=== PATIENT | male | born 1955 | race Caucasian/White ===

== ENCOUNTER 2016-10-29 16:01 | Inpatient (IN) | payer OTHER ==
[~2016-10-29] VITALS: Ht 172.7 cm; Wt 72.8 kg
--- NOTE | ~2016-10-29 | PR ---
[place], [place] PROGRESS NOTE NAME: JOSE L VICENTE UNIT #: [id number] ROOM: 317 DOCTOR: DENI WOOD MD BIRTHDATE: [birth year] DOS: 11/01/2016 CHIEF COMPLAINT: "Nobody is helping me, my renal case manager has done nothing for me, people keep letting me down." SUMMARY OF THE VISIT: The patient was interviewed as he rested in bed. He offered a plethora of complaints this morning, being very angry and irritable towards those people who he feels should be helping him more. He feels that his renal case manager has done nothing and that many people have promised that they would help him with his situation, but they have never delivered. He was very negative and nihilistic and offered one complaint after another including continued chronic pain and poor sleep. MENTAL STATUS: He remains alert and oriented with some time gaps. Mood does seem to be still depressed. Affect is still blunted with a constricted range. There was no hypomania or zak. There were no overt auditory or visual hallucinations. No delusions, no paranoia. Short, intermediate, and long-term memory were relatively fully intact. PLAN: I will go ahead and increase his Cymbalta from 60 mg at bedtime to 90 mg at bedtime to combat depression, anxiety and reduce pain. His valproic acid level was therapeutic at 88.9, so I will maintain his current dose of Depakote. Continue to engage in individual and lamb milieu activities with the plan to return home when psychiatrically stable. DENI WOOD MD CM:PNTRANS [id number] DENI WOOD MD 11/01/16 1032 interface
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
--- NOTE | ~2016-10-29 | PR ---
[place], [place] PROGRESS NOTE [id number] UN[facility] #: [id number] ROOM: 317 DOCTOR: DENI WOOD MD BIRTHDATE: [birth year] DOS: 10/31/2016 CHIEF COMPLAINT: "I think I feel better with the Cymbalta. I like it better than the Prozac." SUMMARY OF THE VISIT: The patient was interviewed in the dining area where he was sitting with a female peer. He engaged readily in conversation with me stating that he is feeling somewhat better since I may to switch off the Prozac on to the Cymbalta. He reports his sleep is better. He is feeling much more positive. He is also noting somewhat less pain and discomfort. He convincingly denies any medication side effects. MENTAL STATUS: He is alert and oriented. Mood does seem to be trending towards euthymia and affect is much more appropriate. There is no symptom suggestive of hypomania or zak. There are no overt auditory or visual hallucinations. No delusions are present. No paranoia is present. Short, intermediate, and alf memory are grossly intact. PLAN: I will go ahead and start him on multivitamin with minerals as he is borderline anemic. I will check a valproic acid level, a Keppra level, and a gabapentin level in the a.m. to ensure that they are therapeutic. We will engage him in individual and lamb milieu activity, returning home when psychiatrically stable. DENI WOOD MD CM:PNTRANS [phone] DENI WOOD MD 10/31/16 1047 interface
[~2016-10-29 16:01] MED LIST: ALAVERT10 M1 PO; APAP PO; ASPI-COR81 M1 PO; CYCLOBENZAPRINE10 MG PO; CYMBALTA30 MG PO; CYMBALTA60 MG PO; DEPAKOTE DR500 MG PO; DEPAKOTE500 M1 PO; DIVALPROEX SOD500 MG PO; GABAPENTIN400 MG PO; IMITREX100 MG PO; INVEGA9 MG PO; KEPPRA500 MG PO; LACTULOSE20 GM/30 M PO; MORPHINE SULFAT30 M8 PO; MS CONTIN30 MG PO; NEURONTIN300 MG PO; OXYCODONE HCL10 M1 PO; OXYCODONE PO; OXYMORPHONE HCL15 MG PO; PREDNISONE10 MG PO; TRIXAICIN HP0.075% T; TYLENOL W/CODEI1 TA2 PO; VITAMIN D50000 I3 PO; ZETIA10 MG PO; [UNRECOGNIZED DRUG - OTHER] PO
[2016-10-29] MEDS ORDERED: NEURONTIN300 MG PO (16:08)
[2016-10-29] MEDS ORDERED: PROZAC10 MG PO (16:11)
[2016-10-29] MEDS ORDERED: MOVANTIK25 MG PO (16:12)
[2016-10-29] MEDS ORDERED: LOW DOSE ASPIRI81 MG PO (16:12)
[2016-10-29] MEDS ORDERED: OXYCODONE HCL10 M1 PO (16:12)
[2016-10-29] MEDS ORDERED: GARLIC1000 M1 PO (16:14)
[2016-10-29] MEDS ORDERED: [UNRECOGNIZED DRUG - CODE] PO (16:15)
[2016-10-29 16:17] VITALS: BP 108/62
[2016-10-29 16:41] LABS: BASO % 0.8 % (0.0-1.0); EOS # 0.2 10*3/uL (0.0-0.4); EOS % 4.4 % (1.0-4.0); HEMATOCRIT 40.2 % (42.0-52.0); HEMOGLOBIN 13.4 g/dl (14.0-18.0); LYMPH # 1.7 10*3/uL (1.3-4.4); LYMPH % 32.8 % (27.0-41.0); MEAN CELL VOLUME 96.2 fl (80.0-94.0); MEAN CORPUSCULAR HGB 32.1 pg (27.0-31.0); MEAN CORPUSCULAR HGB CONC 33.3 g/dl (33.0-37.0); MEAN PLATELET VOLUME 9.3 fl (9.6-12.3); MONO # 0.7 10*3/uL (0.1-1.0); MONO % 13.4 % (3.0-9.0); NEUT # 2.5 10*3/uL (2.3-7.9); NEUT % 48.4 % (47.0-73.0); PLATELET COUNT AUTOMATED 171 10*3/uL (130-400); RED BLOOD COUNT 4.18 10*6/uL (4.50-5.90); RED CELL DISTRI WIDTH 13.2 % (0-14.5); WHITE BLOOD COUNT 5.2 10*3/uL (4.8-10.8)
[2016-10-29 16:53] LABS: BUN 24 mg/dl (7-24); CARBON DIOXIDE 29 mmol/L (21-32); CHLORIDE 104 mmol/L (98-107); EST GLOM FILT AFRICAN AMERICAN > 60 ml/min; GLUCOSE 88 mg/dL (65-99); POTASSIUM 4.3 mmol/L (3.5-5.1); SODIUM 142 mmol/L (136-145)
[2016-10-29 18:20] LABS: BILIRUBIN NEGATIVE (NEGATIVE); BLOOD 2+ (NEGATIVE); CLARITY CLEAR (CLEAR); COLOR YELLOW (YELLOW); GLUCOSE NEGATIVE (NEGATIVE); KETONE NEGATIVE (NEGATIVE); LEUKO ESTERASE NEGATIVE (NEGATIVE); NITRITE NEGATIVE (NEGATIVE); PROTEIN NEGATIVE (NEGATIVE)
[2016-10-29 18:29] LABS: URINE AMPHETAMINES < 1000 (1000ng/ml); URINE BARBITURATES < 200 (200ng/ml); URINE COCAINE < 300 (300ng/ml)
[2016-10-29 18:48] LABS: BACTERIA TRACE; RBC 16-20 rbc/hpf (0-2)
[2016-10-29 18:49] LABS: EPITHELIAL CELLS 0-2; URINE REFLEX COMMENT YES (NO); WBC 0-2 wbc/hpf (0-5)
[2016-10-29 21:00] VITALS: BP 120/82
[2016-10-29 21:04] VITALS: BP 120/82
[2016-10-30 08:11] VITALS: BP 106/72
[2016-10-30 20:00] VITALS: BP 106/68
[2016-10-31 07:50] VITALS: BP 105/69
[2016-10-31 19:54] VITALS: BP 105/65
[2016-11-01 07:50] VITALS: BP 105/62
[2016-11-01 20:17] VITALS: BP 99/62
[2016-11-02 07:06] LABS: NEURONTIN (GABAPENTIN) 6.6 ug/mL (4.0-16.0)
[2016-11-02 08:13] VITALS: BP 111/72
[2016-11-02] MEDS ORDERED: DULOXETINE HCL30 MG PO (08:31)
[2016-11-02] MEDS ORDERED: DIVALPROEX SOD500 MG PO (08:31)
== END 2016-11-02 12:40 | disposition home or self-care (01) | DRG 885 ==
LOC: ED 16:01 → EDHOLD 19:15 → 3N 19:15
PROVIDERS: Emergency Medicine; Psychiatry & Neurology Psychiatry
DX: F33.2 Major depressive disorder, recurrent severe without psychotic features (principal); R45.851 Suicidal ideations; G62.9 Polyneuropathy, unspecified; G40.909 Epilepsy, unspecified, not intractable, without status epilepticus; F41.9 Anxiety disorder, unspecified; D53.9 Nutritional anemia, unspecified; R31.9 Hematuria, unspecified; M54.42 Lumbago with sciatica, left side; M54.41 Lumbago with sciatica, right side; G89.29 Other chronic pain; E78.5 Hyperlipidemia, unspecified; F17.210 Nicotine dependence, cigarettes, uncomplicated; I73.9 Peripheral vascular disease, unspecified; K59.00 Constipation, unspecified; T40.2X5A Adverse effect of other opioids, initial encounter; Y92.89 Other specified places as the place of occurrence of the external cause; Z98.49 Cataract extraction status, unspecified eye; Z88.0 Allergy status to penicillin; Z71.6 Tobacco abuse counseling; Z88.5 Allergy status to narcotic agent; Z83.3 Family history of diabetes mellitus

== ENCOUNTER 2017-02-17 06:21 | Inpatient (IN) | payer OTHER ==
[~2017-02-17] VITALS: Ht 177.8 cm; Wt 69.1 kg
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
[~2017-02-17 06:21] MED LIST changes: +DULOXETINE HCL30 MG PO; +GARLIC1000 M1 PO; +LOW DOSE ASPIRI81 MG PO; +MOVANTIK25 MG PO; +PROZAC10 MG PO; +[UNRECOGNIZED DRUG - CODE] PO
[2017-02-17 06:37] VITALS: BP 107/71
[2017-02-17 06:51] LABS: BASO % 0.4 % (0.0-1.0); EOS # 0.2 10*3/uL (0.0-0.4); HEMATOCRIT 38.3 % (42.0-52.0); HEMOGLOBIN 13.2 g/dl (14.0-18.0); LYMPH # 1.2 10*3/uL (1.3-4.4); LYMPH % 13.9 % (27.0-41.0); MEAN CELL VOLUME 93.6 fl (80.0-94.0); MEAN CORPUSCULAR HGB 32.3 pg (27.0-31.0); MEAN CORPUSCULAR HGB CONC 34.5 g/dl (33.0-37.0); MEAN PLATELET VOLUME 10.4 fl (9.6-12.3); MONO # 0.6 10*3/uL (0.1-1.0); MONO % 7.2 % (3.0-9.0); NEUT # 6.8 10*3/uL (2.3-7.9); NEUT % 76.3 % (47.0-73.0); PLATELET COUNT AUTOMATED 135 10*3/uL (130-400); RED BLOOD COUNT 4.09 10*6/uL (4.50-5.90); WHITE BLOOD COUNT 8.9 10*3/uL (4.8-10.8)
[2017-02-17 07:08] LABS: ACETAMINOPHEN (TYLENOL) < 2.0 ug/ml (10-30); ALBUMIN 3.6 gm/dl (3.1-4.5); ALKALINE PHOSPHATASE 50 U/L (45-117); BUN 47 mg/dl (7-24); CHLORIDE 99 mmol/L (98-107); CREATININE 1.23 mg/dL (0.70-1.30); ETHYL ALCOHOL < 3.0 mg/dl (<3); POTASSIUM 4.4 mmol/L (3.5-5.1); SGOT/AST 944 IU/L (3-35); SGPT/ALT 228 U/L (12-78); SODIUM 134 mmol/L (136-145); TOTAL PROTEIN 6.4 gm/dL (6.4-8.2); VALPROIC ACID (DEPAKENE) 38.9 ug/ml (50-100)
[2017-02-17 08:00] LABS: BILIRUBIN 1+ (NEGATIVE); BLOOD 3+ (NEGATIVE); CLARITY SL CLOUDY (CLEAR); COLOR YELLOW (YELLOW); GLUCOSE NEGATIVE (NEGATIVE); KETONE 1+ (NEGATIVE); LEUKO ESTERASE NEGATIVE (NEGATIVE); NITRITE NEGATIVE (NEGATIVE); PH 5.5 (5.0-9.0)
[2017-02-17 08:11] LABS: URINE AMPHETAMINES < 1000 (1000ng/ml); URINE BARBITURATES < 200 (200ng/ml); URINE BENZODIAZEPINES < 200 (200ng/ml); URINE CANNABINOIDS (THC) < 50 (50ng/ml); URINE COCAINE < 300 (300ng/ml); URINE METHADONE < 300 (300ng/ml); URINE OPIATES > 300 (300ng/ml)
[2017-02-17 08:12] LABS: BACTERIA 2+; MUCOUS 1+; URINE PHENCYCLIDINE < 25 (25ng/ml)
[2017-02-17 08:13] LABS: EPITHELIAL CELLS 0-2
[2017-02-17 08:13] LABS: ACT PARTIAL THROMBO TIME 23.5 SECONDS (20.8-31.5)
[2017-02-17 08:39] VITALS: BP 117/70
--- NOTE | 2017-02-17 09:10 | NUR ---
Time: 909 A 61 year old MALE admitted to 5E under services of MANDEEP HICKEY DO. Pt. arrived via stretcher from ER. Chief complaint: FALL. VARUN VIVAS
[2017-02-17 09:12] VITALS: BP 126/72
--- NOTE | 2017-02-17 11:21 | NUR ---
DR WOOD NOTIFIED OF CONSULT.
[2017-02-17] MEDS ORDERED: CYMBALTA60 MG PO (11:51)
--- NOTE | 2017-02-17 11:55 | NUR ---
MEDS VERIFIED WITH [facility]. BOBY SMITH NOTIFIED.
--- NOTE | 2017-02-17 14:48 | NUR ---
PHYSICAL THERAPY PAtient unable to participate in PT this date. Confused and requesting no PT. Will attempt at a later date. Thank you for this referral. Valentina Enamorado,PT
--- NOTE | 2017-02-17 14:50 | NUR ---
Occupational Therapy evaluation attempted this date. Patient declined services this date. He was confused in thought and had a difficulty time focusing on questions asked. OTR will recheck at a later date. Thank you for this referral. Na Lucas OTR/L
[2017-02-17 16:00] VITALS: BP 81/59
--- NOTE | 2017-02-17 16:30 | NUR ---
SPOT BILLING CLERK STATES PT DOES HAVE HEAT. PROPANE WAS DELIVERED TODAY.
--- NOTE | 2017-02-17 22:30 | NUR ---
PATIENT CONFUSED . DOES NOT REORIENT EASILY. WANTING TO LEAVE. PATIENT RETURNED TO BED.
--- NOTE | 2017-02-17 22:48 | NUR ---
PATIENT MEDICATED WITH RESTORIL AND OXY IR PER PRN ORDER AND PATIENT REQUEST FOR INABILITY TO SLEEP AND PAIN. SEE EMAR. REINFORCED USE OF CALL LIGHT.
--- NOTE | 2017-02-18 | NUR ---
PATIENT CONFUSED COMBATIVE REFUSING TO HIS VITAL SIGNS TAKEN.
--- NOTE | 2017-02-18 00:15 | NUR ---
PATIENT AGGITATED , COMBATIVE WITH STAFF. BECAME MORE COMBATIVE WITH NURSING INTERVENTIONS.
--- NOTE | 2017-02-18 00:20 | NUR ---
CAROLINE ROMEO CALLED. DR SEO AND DR QUIROZ CAME TO FLOOR. ATTEMPTS TO REORIENT UNSUCCESSFUL.
--- NOTE | 2017-02-18 00:27 | NUR ---
FRIEND KIM CALLED. STATED SHE WAS IN [place] AND WAS UNABLE TO CONE SIT WITH PATIENT.
--- NOTE | 2017-02-18 00:55 | NUR ---
CALL TO DR. WOOD. NO ANSWER . WENT TO [employer] MACHINE. MESSAGE LEFT TO CALL .
--- NOTE | 2017-02-18 01:01 | NUR ---
PATIENT MEDICATED WITH 5 MG IM GEODONE PER ORDER.
--- NOTE | 2017-02-18 02:00 | NUR ---
PATIENT APPEARS TO BE MORE CALM . ACTUARY MANAGER SITTING WITH PATIENT AT PRESENT.
--- NOTE | 2017-02-18 02:53 | NUR ---
PATIENT UP AND RESTLESS. PATIENT MEDICATED WITH HALDOL 2.5MG IV PER ONE TIME ORDER.
--- NOTE | 2017-02-18 03:13 | NUR ---
CAROLINE ROMEO CALLED AGAIN. PATIENT RESTLESS COMBATIVE . BECOMING MORE AGGITATED AND COMBATIVE.
--- NOTE | 2017-02-18 03:25 | NUR ---
ATIVAN 1 MG IM GIVEN FOR AGGITATION.
--- NOTE | 2017-02-18 03:50 | NUR ---
DR. QUIROZ AND DR SEO CALLED . PATIENT AGGITATED REFUSING TO RETURN TO BED. KICKING AT STAFF AND YELLING. DR SEO STATED SHE WOULD PUT MEDS IN AND COME TO FLOOR.
--- NOTE | 2017-02-18 03:59 | NUR ---
PATIENT MEDICATED WITH 10 MG IM GEODON PER ONE TIME ORDER FOR AGGITATION AND COMBATIVE BEHAVIOR.
--- NOTE | 2017-02-18 05:15 | NUR ---
PATIENT APPEARS TO BE RESTING EASILY. MEDICATION EFFECTIVE.
[2017-02-18 06:36] LABS: BASO % 0.4 % (0.0-1.0); EOS # 0.2 10*3/uL (0.0-0.4); EOS % 2.9 % (1.0-4.0); HEMATOCRIT 39.8 % (42.0-52.0); HEMOGLOBIN 13.4 g/dl (14.0-18.0); LYMPH # 1.3 10*3/uL (1.3-4.4); LYMPH % 19.4 % (27.0-41.0); MEAN CELL VOLUME 96.1 fl (80.0-94.0); MEAN CORPUSCULAR HGB 32.4 pg (27.0-31.0); MEAN CORPUSCULAR HGB CONC 33.7 g/dl (33.0-37.0); MEAN PLATELET VOLUME 10.1 fl (9.6-12.3); MONO # 0.7 10*3/uL (0.1-1.0); MONO % 9.6 % (3.0-9.0); NEUT # 4.6 10*3/uL (2.3-7.9); NEUT % 67.1 % (47.0-73.0); PLATELET COUNT AUTOMATED 149 10*3/uL (130-400); RED BLOOD COUNT 4.14 10*6/uL (4.50-5.90); RED CELL DISTRI WIDTH 13.3 % (0-14.5); WHITE BLOOD COUNT 6.9 10*3/uL (4.8-10.8)
[2017-02-18 06:47] LABS: ALBUMIN 3.1 gm/dl (3.1-4.5); CHLORIDE 104 mmol/L (98-107); CHOLESTEROL 118 mg/dL (<200); PHOSPHOROUS 3.4 mg/dL (2.5-4.9); POTASSIUM 3.9 mmol/L (3.5-5.1); SGOT/AST 466 IU/L (3-35); SGPT/ALT 167 U/L (12-78); SODIUM 140 mmol/L (136-145); TOTAL PROTEIN 6.5 gm/dL (6.4-8.2); TRIGLYCERIDES 87 mg/dl (<150); VLDL CHOLESTEROL 17 mg/dL (6-40)
[2017-02-18 06:54] LABS: ALKALINE PHOSPHATASE 53 U/L (45-117); FREE T4 1.41 ng/dl (0.76-1.46); HDL CHOLESTEROL 46 mg/dl (40-60); LDL CHOLESTEROL 55 mg/dL (9-159)
[2017-02-18 06:58] LABS: BUN 27 mg/dl (7-24)
[2017-02-18 07:04] LABS: HEPATITIS B SURFACE AG Negative (Negative)
[2017-02-18 07:47] LABS: HEPATITIS C VIRUS ANTIBODY >11.0 s/co (0.0-0.9)
[2017-02-18 07:50] LABS: VITAMIN D, 25-HYDROXY 13.3 ng/mL (30-100)
[2017-02-18 08:00] VITALS: BP 97/67
--- NOTE | 2017-02-18 08:57 | NUR ---
PT WAS ADMITTED TO ROOM 505 HIS NURSE DOLORES WAS CALLED AND GIVEN THE LAB RESULT ANUP CONTRERAS RN.
--- NOTE | 2017-02-18 10:15 | NUR ---
PHYSICAL THERAPY PAtient eating breakfast at this time. Valentina Enamorado,PT
--- NOTE | 2017-02-18 10:19 | NUR ---
Patient not available for OT evaluation as he was eating breakfast. OTR will attempt at a later time. Na Lucas OTR/Brian
[2017-02-18] MEDS ORDERED: DIVALPROEX SOD500 MG PO (10:41)
[2017-02-18] MEDS ORDERED: RISPERIDONE1 MG PO (10:41)
--- NOTE | 2017-02-18 10:57 | NUR ---
SW SPOKE WITH PT. PT HAS A M[facility]ATH [facility]. PT WOULD LIKE REFERRAL TO [facility] FOR THE PASPPORT PROGRAM FOR INHOME ASSISTANCE.
--- NOTE | 2017-02-18 11:28 | NUR ---
PHYSICAL THERAPY Patient with pending D/C to [facility]. Thank you for this referral. Valentina Enamorado,PT
--- NOTE | 2017-02-18 12:02 | NUR ---
Patient to be transferred to [facility] today, therefore no OT evaluation completed at this time. Na Lucas OTR/l
--- NOTE | 2017-02-18 13:30 | NUR ---
Discharge instructions reviewed with patient/family. Patient receptive and verbalizes understanding. Follow-up care arranged. Written instructions given to patient/family. JOSE MIRANDA
== END 2017-02-18 12:30 | disposition home health service (06) | DRG 641 ==
LOC: ED 06:21 → EDHOLD 08:17 → 5E 08:38
PROVIDERS: Emergency Medicine; Emergency Medicine Emergency Medical Services; Registered Nurse; ADMIT Internal Medicine
DX: R62.7 Adult failure to thrive (principal); G62.9 Polyneuropathy, unspecified; E83.41 Hypermagnesemia; E87.1 Hypo-osmolality and hyponatremia; F41.9 Anxiety disorder, unspecified; M54.9 Dorsalgia, unspecified; F17.210 Nicotine dependence, cigarettes, uncomplicated; F32.9 Major depressive disorder, single episode, unspecified; R74.0 Nonspecific elevation of levels of transaminase and lactic acid dehydrogenase [LDH]; G40.909 Epilepsy, unspecified, not intractable, without status epilepticus; I73.9 Peripheral vascular disease, unspecified; Z60.2 Problems related to living alone; G89.29 Other chronic pain; M25.512 Pain in left shoulder; R31.9 Hematuria, unspecified; E78.5 Hyperlipidemia, unspecified; Z88.6 Allergy status to analgesic agent; Z71.6 Tobacco abuse counseling; Z88.0 Allergy status to penicillin; Z79.891 Long term (current) use of opiate analgesic; Z89.011 Acquired absence of right thumb; Z98.42 Cataract extraction status, left eye; Z90.49 Acquired absence of other specified parts of digestive tract; Z83.3 Family history of diabetes mellitus

== ENCOUNTER 2017-02-18 11:56 | Inpatient (IN) | payer OTHER ==
[~2017-02-18] VITALS: Ht 177.8 cm; Wt 69.6 kg
--- NOTE | ~2017-02-18 | WRIGHTHP ---
[place], [place] PATIENT HISTORY AND PHYSICAL EXAM NAME: JOSE L VICENTE [facility] #: [id number] UNIT #: [id number] ROOM: 316 DOCTOR: DENI WOOD MD BIRTHDATE: [birth year] DOS: 02/19/2017 CHIEF COMPLAINT: "I guess I just have to do what I have to do. I slept a little better at least." HISTORY OF PRESENT ILLNESS: This is a 61-year-old white male who was initially admitted to medical floor due to significant alteration in mental status. He initially presented to the emergency room at [facility] after calling 911. Upon approach to the emergency room, he stated that his cats actually made the phone call and not him. A search of his home later found his house to be absolutely deplorable and dirty. When he presented to the emergency room at [facility], he was covered in fecal material and urine. He was very disheveled. He was grossly psychotic and very agitated and while on the medical floor required multiple p.r.n. including Haldol, Geodon and Ativan. The patient is admitted now to the [facility] to further stabilize on medication, to engage in individual and lamb milieu activity and to determine the least restrictive environment post-discharge. PAST MEDICAL HISTORY: Significant for a TBI that occurred in the 70s. MENTAL STATUS: The patient is alert and oriented with significant time gaps. Mood is rather depressed. Affect is anxious and fretful. He is very disjointed in his thinking and has a hard time, responding appropriately to normal questions. He does seem to be grossly delusional. Short term memory has significant gaps. DIAGNOSIS: Major depression, recurrent with psychotic features. PLAN: I have already started him on Risperdal 1 mg twice daily. I will increase this to 1 mg in the morning and 2 mg at night. Given the fact that he has regressed despite being on Cymbalta, I will discontinue Cymbalta in lieu of Remeron 15 mg at bedtime. Routine screening examinations revealed a low vitamin D level of 11.9, so I will start vitamin D 50,000 international units weekly. I have consulted Dr. Chino Salas, psychologist, for competency evaluation. We will also explore possible discharge into at least a 30-day rehab if not into a permanent long-term care placement. We will engage in individual and lamb milieu activity, returning to the least restrictive environment when psychiatrically stable. [place], [place] PATIENT HISTORY AND PHYSICAL EXAM NAME: JOSE L VICENTE UNIT #: [id number] ROOM: [facility] DOCTOR: DENI WOOD MD BIRTHDATE: [birth year] DENI WOOD MD CM:HISPHYS:PATIENT HISTORY AND PHYSICAL EXAMINATION 1 3 DENI WOOD MD 02/19/1732 interface
--- NOTE | ~2017-02-18 | PR ---
[place], [place] PROGRESS NOTE [id number] #: [id number] ROOM: 316 DOCTOR: Abeba HIDALGO,WILMER BIRTHDATE: [birth year] DOS: 02/27/2017 SUBJECTIVE: The patient seen and spoke with the nursing staff. Per nursing staff, the patient is doing well. No behavioral problems or issues. Medication compliant. The patient was pleasant, cooperative. He was in the day area. He reports doing well. He feels the medication is helping him. He denied any depressed mood or hopelessness. Denied any other neurovegetative signs and symptoms of depression. He reports good sleep and appetite. He denied any other problems or concerns. MENTAL STATUS EXAMINATION: Pleasant, cooperative, described his mood as "good." Affect, mood congruent. Thought process goal directed. No flight of ideas, loosening of association. He denied auditory or visual hallucination. No delusion or paranoia noted. He denied any suicidal ideation, intent or plan. He also denied any homicidal ideation, intent or plan. Insight and judgment poor to fair. ASSESSMENT: Major depressive disorder, recurrent with psychotic feature. 1. Continue current medication and care. 2. Continue redirection. 3. Supportive care. WILMER HIDALGO MD CM:KIRK 1236 Abeba HIDALGO 02/27/17 1908 interface
--- NOTE | ~2017-02-18 | PR ---
[place], [place] PROGRESS NOTE NAME: [id number] UNIT #: [id number] ROOM: 316 DOCTOR: DENI WOOD MD BIRTHDATE: [birth year] DOS: 02/24/2017 CHIEF COMPLAINT: "I am just sitting here waiting, thanks for visiting." SUMMARY OF THE VISIT: The patient was interviewed first as he was sitting in his wheelchair in the hallway, later as he walked with Physical Therapy up and down the hallway without assistance. He engaged readily in conversation. He voiced a readiness to leave the hospital and denied any issues with sleep or appetite. He was anxious per his report to sit down and have breakfast. Of note, last evening, I received a call that his valproic acid level was elevated at 108.6. However, I am not seeing any signs and symptoms suggestive of valproic acid toxicity. As a precaution; however, I did lower the Depakote ER from 2000 mg at bedtime to 1500 mg at bedtime. Once again upon examination this morning, I see no sign suggestive of valproic acid toxicity. MENTAL STATUS: He is alert and oriented with time gaps. Mood does seem to be gradually trending towards euthymia. Affect is much more appropriate. There are no symptoms of zak or hypomania. There is some residual delusional system present, but this may be baseline. Memory has gaps, especially for short term events. PLAN: As mentioned above, I have lowered the Depakote ER from 2000 mg at bedtime to 1500 mg at bedtime. I will increase Namenda from 5 mg a day to 5 mg twice a day, augmenting the effectiveness of the Exelon patch. We will continue to engage in individual and lamb milieu activity, returning to the least restrictive environment when psychiatrically stable. DENI WOOD MD CM:PNTRANS 5 DENI WOOD MD 02/24/1747 interface
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
--- NOTE | ~2017-02-18 | PR ---
[place], [place] PROGRESS NOTE NAME: JOSE L VICENTE UNIT #: [id number] ROOM: 316 DOCTOR: DENI WOOD MD BIRTHDATE: [birth year] DOS: 02/26/2017 CHIEF COMPLAINT: "How are you my friend, I am ready to go have breakfast." SUMMARY OF THE VISIT: The patient was interviewed as he was wheeling down the taylor in to the breakfast room. I followed him into the breakfast room and engaged readily in conversation with him. He seemed bright and pleasant and does seem to be much more euthymic than he had been upon admission. He engaged readily in conversation and voiced no complaints, stating that he is sleeping well, eating well and feels much better. There still is some mood lability and there are also gaps in his short term memory. His ability to attend to ADLs without assistance also is lacking. MENTAL STATUS: He is alert and oriented to person, place, but not time. Mood does seem to be trending towards euthymia. Affect is much more appropriate. There are no symptoms of zak or hypomania. There are no auditory or visual hallucinations. No delusions, no paranoia. Short term memory has gaps, otherwise he is intact. PLAN: I will increase his Namenda from 10 mg totally in a day to 15 with a target dose of 20 mg a day in mind. Maintain his current dose of Exelon, maintain his other psychotropics. Engage in individual and lamb milieu activities. Awaiting ____ to be able to discharge to the least restrictive environment. DENI WOOD MD CM:PNTRANS [id number] DENI WOOD MD 02/27/17 0325 interface
--- NOTE | ~2017-02-18 | PR ---
[place], [place] PROGRESS NOTE NAME: JOSE L VICENTE UNIT #: [id number] ROOM: 316 DOCTOR: DENI WOOD MD BIRTHDATE: [birth year] DOS: 03/01/2017 CHIEF COMPLAINT: "I was dancing with my wheelchair." SUMMARY OF THE VISIT: The patient was seated in the dining area where he was eating a rather large breakfast. He engaged readily in conversation. He continues to show episodes of confusion. He reported to me that he was dancing this weekend with his wheelchair in the hallway and that he was upset that he did not get to leave with the ladies. He does mix rather clear thinking with very confused thinking and nurses report that he was restarted on an opiate and had a significant reaction. Family did call and confirm that in the past he has had extreme mental status changes when given opiates. MENTAL STATUS: He is alert and oriented to person, place, but not time. Mood does seem to be trending towards euthymia. Affect is more appropriate. There are no symptoms of zak or hypomania. There are some gross delusions present. Memory for short term events is poor. PLAN: I will maximize out the dose of Namenda to 10 mg b.i.d., continue his psychotropic regimen. We will check a Keppra and Neurontin level and engage in individual and lamb milieu activity, returning to the least restrictive environment when psychiatrically stable. DENI WOOD MD CM:PNTRANS [id number] DENI WOOD MD 03/01/17 0803 interface
--- NOTE | ~2017-02-18 | PR ---
[place], [place] PROGRESS NOTE NAME: JOSE L VICENTE UNIT #: [id number] ROOM: 316 DOCTOR: DENI WOOD MD BIRTHDATE: [birth year] DOS: 02/25/2017 CHIEF COMPLAINT: "Good morning, you could be my best friend." SUMMARY OF THE VISIT: The patient was interviewed in his room. He was resting quietly in bed, but awoke easily. He was pleasant and bright. He called me his best friend here. He seemed rather perplexed and bewildered in some ways and his responses tended to be a bit odd and peculiar. He was pleasant at least and offered no other complaints. He voiced a readiness to come and eat breakfast and states that he is tolerating the medicines well and notes no issues. He is very happy with the care he is receiving here. MENTAL STATUS: He is alert and oriented to person, place, but not time. Mood does seem to be more euthymic. Affect is more appropriate. There are no symptoms of zak or hypomania. There are no auditory or visual hallucinations. No delusions, no paranoia. Short term memory has gaps, otherwise he is intact. PLAN: I will maximize the Exelon patch dose to 13.3 mg a day to help maintain or improve ADLs, behavior and cognition. Maintain his other psychotropic regimen. Continue to await ____ results and then place into the least restrictive environment when psychiatrically stable. DENI WOOD MD CM:PNTRANS DENI WOOD MD 02/25/1740 interface
--- NOTE | ~2017-02-18 | PR ---
[place], [place] PROGRESS NOTE NAME: JOSE L VICENTE [facility] #: [id number] UNIT #: [id number] ROOM: 316 DOCTOR: Abeba HIDALGO,WILMER BIRTHDATE: [birth year] DOS: 02/28/2017 SUBJECTIVE: The patient seen and spoke with the staff. Per staff, the patient is doing well. No problems or issues. Medication compliant, did not have any side effect. The patient was pleasant and cooperative. He reports doing well. He reports good sleep and appetite. He says that he is doing better and feeling better. He denied any side effect from the medication. The patient was pleasant, cooperative. He was not in any acute distress. Reports doing good. MENTAL STATUS EXAMINATION: Pleasant, cooperative. Described his mood as "good." Affect appropriate. Thought process goal directed. No flight of ideas, loosening of association. He denied auditory or visual hallucination. No delusion or paranoia noted. He denied suicidal ideation, intent or plan. He also denied homicidal ideation, intent or plan. ASSESSMENT: Major depressive disorder, recurrent. PLAN: 1. Continue current medication and care. 2. Continue redirection. 3. Final medication management and discharge plan by the regular team. WILMER HIDALGO MD CM:KIRK [id number] [phone] Abeba HIDALGO 02/28/172231 interface
--- NOTE | ~2017-02-18 | PR ---
[place], [place] PROGRESS NOTE NAME: JOSE L VICENTE UNIT #: [id number] ROOM: 316 DOCTOR: DENI WOOD MD BIRTHDATE: [birth year] DOS: 02/22/2017 CHIEF COMPLAINT: "I feel with my hands of course." SUMMARY OF THE VISIT: The patient was interviewed in the dining area where he sat waiting for his breakfast. He engaged in very superficial conversation and lacked significant spontaneity. His responses to me tended to be short and simple and at times inappropriate to the questions asked of him. Nurses report he continues to have episodes of increased confusion and tends to have his focus fixated on long past events. He is tolerating the current medication regimen well and he does seem to be sleeping better with the medication changes that I made over the weekend. MENTAL STATUS: He is alert and oriented to person, place, but not necessarily to time. Mood does seem to be strongly trending towards euthymia and affect is much more appropriate. There is no symptom suggestive of hypomania or zak. Likewise, there are no overt auditory or visual hallucinations. No delusions were voiced. Short term memory has gaps, otherwise he is fairly intact. PLAN: I will go ahead and increase the Exelon patch from 4.6 mg daily to 9.5 mg daily to attempt to impact positively on ADL maintenance, behavior and cognition. We will engage in individual and lamb milieu activity. I am awaiting Dr. Chino Salas, psychologist's input regarding competency to determine whether or not guardianship should be obtained and then look towards appropriate placement to keep the patient safe. We will return to the least restrictive environment when psychiatrically stable. DENI WOOD MD CM:PNTRANS [id number] DENI WOOD MD 02/22/17 1014 interface
--- NOTE | ~2017-02-18 | PR ---
[place], [place] PROGRESS NOTE [id number] UNIT #: [id number] ROOM: 316 DOCTOR: DENI WOOD MD BIRTHDATE: [birth year] DOS: 02/20/2017 CHIEF COMPLAINT: "Oh yah, it's over there, can't you see that." SUMMARY OF THE VISIT: The patient was interviewed as he sat in the group therapy room. As I attempted to engage him in conversation, he was very confused and disoriented. His responses bordered on being word salad and did not make sense to the context of the question that I was asking of him. Nurses concurred that he has been very confused and disoriented. He also did not sleep well last night. MENTAL STATUS: He is alert and oriented to self. It is unclear if he realizes he is currently in the hospital. He certainly is not oriented to time. Responses tended to be short, simple fragmented and disjointed, often inappropriate. At times, he talked and word salad mumbling along the way. He does have a great deal of processing difficulty. Short-term memory is poor. PLAN: His valproic acid level is now therapeutic at 94.5. I see no signs of toxicity; however, I am going to change him from Depakote 500 mg 3 times a day to Depakote ER 2000 mg at bedtime to lessen daytime somnolence and improve nighttime sedation. I will also order Rozerem 8 mg p.r.n. for sleep as a nonaddicting sleep aid. Given the fact that his confusion and disorientation is so profound, I will start him on Exelon patch 4.6 mg daily to impact positively on ADLs, behavior and cognition. Awaiting Dr. Chino Salas, psychologist's input regarding competency. This will help determine where we suggest placement post-discharge. Engage in individual and lamb milieu activities, returning to the least restrictive environment then when psychiatrically stable. DENI WOOD MD CM:PNTRANS [id number] DENI WOOD MD 02/20/17 1250 interface
--- NOTE | ~2017-02-18 | PR ---
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 He engaged readily in conversation. Of note, he did remember talking to Dr. Chino Salas, psychologist yesterday, but could not remember the details of the conversation. 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 He was very convincing and very much sincere about him going on tour with a famous [employer] musician. When attempted to be redirected, he next focused on returning home, stating that he has a perfectly good home to go to that is clean and waiting for him. The reality of all of these situations is suspect. MENTAL STATUS: He is alert and oriented to person, possibly place in that he realizes he is in the hospital, but certainly not to time. Mood is still somewhat expansive, affect that was appropriate. He does tend to be very tangential in his thinking. There are no overt auditory or visual hallucinations. There is a significant delusional component. There is no hypomania or zak. Memory has significant gaps. PLAN: I will go ahead and augment the Exelon patch with Namenda 5 mg a day with the ultimate plan to gradually bring the Namenda into its therapeutic dose of 20 mg daily. I will check a valproic acid level today at 1500 hours to ensure that it is therapeutic. We will continue to engage in individual and lamb milieu activity with the ultimate plan to return to the least restrictive environment when psychiatrically stable. DENI WOOD MD CM:PNTRANS 6 DENI WOOD MD 02/23/17 0845 interface
[~2017-02-18 11:56] MED LIST changes: +RISPERIDONE1 MG PO
--- NOTE | 2017-02-18 12:40 | NUR ---
PT ESCORTED TO [facility] FROM 5TH FLOOR VIA WHEELCHAIR WITH THIS NURSE, BASSAM AND SECURITY ESCORTING.
[2017-02-18 12:42] VITALS: BP 112/82
--- NOTE | 2017-02-18 12:46 | NUR ---
ANSWERING THE PHONE FOR AT [phone], ADVISED DR. RYDER OF CONSULT NEEDED FOR MEDICAL MANAGEMENT, PER DR. RYDER PLACE THE CONSULT UNDER .
--- NOTE | 2017-02-18 13:19 | NUR ---
CINTHIAJOSE L a 61 year old M admitted via wheel chair from the 5TH FLOOR as a voluntary admission. Arrived on unit at 1235. ALLERGIES: MORPHINE, PCN. Vital signs are: 97.0-89-16 112/82. The client signed the following forms with stated understanding: Authorization For The Release of Medical Information, Clothing List, Consent to Voluntary Admission and Hospitalization, Consent and Release Forms/Receipt of Rights, Acknowledgement of Advance Directive Information, Behavioral Health Consent Form, and Informed Consent of Medications. Admitted under the services of [facility]. A search was conducted and hazardous articles were removed. Client was oriented to the unit. MORGAN RAJPUT
--- NOTE | 2017-02-18 13:30 | NUR ---
PATIENT STATED HE HAD DIFFICULTY SWALLOW FOOD, IS ON REGULAR DIET, HAS DENTURES AT HOME AND DOES NOT WEAR THEM. PATIENT ATE LUNCH WITHOUT ANY DIFFICULTIES NOTED.
--- NOTE | 2017-02-18 13:30 | NUR ---
PATIENT IS ALERT AND ORIENTED TO PERSON WITH CONFUSION, COOPERATIVE WITH ASSESSMENT. MOOD IS DEPRESSED AND IRRATIBLE AT TIMES. DENIES ANY HALLUCINATIONS, DELUSIONS, HI/SI OR PAIN. DURING INTERVIEW PROCESS PATIENT RESPONDING TO INTERNAL STIMULI, VISUAL HALLUCINATIONS OF ASKING THE NURSE "DID YOU SEE THOSE VANS IN THE FIELD?" POINTING OVER TO THE OTHER ROOM. PATIENT PREOCCUPIED WITH WANTING OXYCODONE. AFTER ASSESSMENT PATIENT WANTED TO KNOW "WHERE ARE MY ANTIPSYCHOTIC AT?". PATIENT GIVEN MEDICATIONS ORDERED. 1 PERSON ASSIST WITH ACTIVITIES OF DAILY LIVING, SET UP FOR MEALS, GOOD MEAL INTAKES WITH ADEQUATE FLUIDS 100% OF LUNCH. CONTINENT OF BOWEL AND BLADDER. Q 15 SAFETY CHECKS MAINTAINED. CONTINUE TO MONITOR FOR BEHAVIORS AND REDIRECT NEEDED.
--- NOTE | 2017-02-18 15:42 | NUR ---
pt friend, Yomaira Virgil called back in and states that she is currently in [place], she states that she thinks that the medicine he is on is causing some of his psychosis. She states that there have been some changes in his med's and in her opinion the seizures that they think he may be experiencing is more of an anxiety attack. She states she just is concerned that the change in medicine may be acsuing some of these symptoms. Yomaira gave SW the brother's number and a [facility] Tory dimas also helps the pt. out . TRINY maría attempt to get in [facility] with pt. brother Wojciech also.
--- NOTE | 2017-02-18 16:18 | NUR ---
APS worker here to assess pt. and living conditions as to whether or not it will be safe for pt. to return [place]. CM and APS worker, amanda Garcia went to [facility] and Amanda states that pt. home is not in liveable condition, does not have running water, nor heat, in addition to cat feces all over. Amanda asked that a competency evaluation be done to be able to get emergency guardinship so that pt. can be placed in a supervised setting. info. passsed along to Dr. nunez for approval.
--- NOTE | 2017-02-18 16:19 | NUR ---
Physical therapy ealuation not appropriate at this per certified nursing assistant instructor. PT attempted eval at approximately 1545. Physical therapy to return at a later time. Ciara Jesus, PT
--- NOTE | 2017-02-18 16:21 | NUR ---
Dr. Collins gave permission via text that pt. consult for competency to be ordered.
--- NOTE | 2017-02-18 19:45 | NUR ---
PT RESTLESS. UP AND DOWN OUT OF CHAIR. PT SAT DOWN ON THE FLOOR AND TRIED TO CRAWL UNDER THE TABLE BECAUSE THERE WAS SOMETHING IN THE AIR. PT HAVING VISUAL HALLUCINATIONS. UNREDIRECTABLE. PT CHEWING ON TWO FINGERS AFTER HE WAS PLCAED BACK IN HIS WHEELCHAIR. PT SHOWING INCREASED ANXIETY. PRN ATIVAN PO GIVEN AT THIS TIME. WILL MONITOR EFFECTIVENESS OF MEDICATION. STAFF MEMBER SITTING WITH PT AT THIS TIME.
[2017-02-18 20:22] VITALS: BP 102/74
--- NOTE | 2017-02-18 20:30 | NUR ---
PT MEDICATION COMPLIANT. MEDICATION EDUCATION PROVIDED. RESPIRATIONS EASY AND NON LABORED. Q15 MINUTE SAFETY CHECKS MAINTAINED. FALL PRECAUTIONS MAINTAINED. SEE [facility] FLOWSHEET FOR SPECIFIC MONITORING.
--- NOTE | 2017-02-18 20:45 | NUR ---
PRN SEMI EFFECTIVE. PT STILL SHOWING SIGNS OF RESTLESSNESS. ANXIETY IS DECREASED. NO VISUAL HALLUCINATIONS NOTED AT THIS TIME. PT CONTINUES TO BE UP AND DOWN OUT OF CHAIR. REDIRECTED MULTIPLE TIMES. WILL CONTINUE TO MONITOR PT. NO S/S OF DISTRESS NOTED. NO C/O PAIN.
--- NOTE | 2017-02-18 21:30 | NUR ---
PT TOILETED X2 STAFF MEMBERS. PT STATING HE SAW A "GREEN THING" ON THE WALL TO GET HAND LEAF COVERER.
--- NOTE | 2017-02-18 22:00 | NUR ---
PT IN GROUP ROOM WITH OTHER PATIENTS AND STAFF. SHOWING INCREASED ANXIETY. UP AND DOWN OUT OF CHAIR. ATTEMPTED TO PUT PT IN A BARBARA CHAIR TO PROMOTE REST AND WAS INEFFECTIVE. PT BACK UP TO WHEELCHAIR. TAKING ALARM OFF. TOLD STAFF MEMBER "I WILL THROW MY CHAIR AT YOUR HEAD THEN YOU WILL WALK AROUND WITH A CHAIR STUCK OUT THE SIDE OF YOUR HEAD." PT STANDING NEXT TO TABLES WITH UNSTEADY GAIT AND UNREDIRECTABLE. THIS NURSE STANDING NEXT TO PT HOLDING ON TO ONE ARM PT STATED "LET GO AND GO OVER THERE AND STAND" PT BENDING OVER TO PICK UNSEEN OBJECTS UP OFF THE FLOOR AND BECAME UNSTEADY. PRN GEODON GIVEN AT THIS TIME DUE TO INCREASED AGITATION/IRRITABILTY AND RESTLESSNESS. WILL MONITOR EFFECTIVENESS OF MEDICATION. STAFF MEMBER REMAINS SEATED IN THE GROUP ROOM TO MONITOR PT.
--- NOTE | 2017-02-19 00:30 | NUR ---
PT STATED HE WANTED TO GO TO BED. ATTEMPTED TO PUT PT TO BED. PT STAYED IN BED FOR ABOUT 1 HOUR WITH MULTIPLE AWAKENINGS AND TALKING IN HIS SLEEP. PT THEN WOKE UP AND IMMEDIATELY TRIED TO GET OUT OF BED. ASSISTED TO BARBARA CHAIR X3 STAFF. PT LESS ANXIOUS AND RESTLESS. PT TAKEN TO QUIET ROOM AND MONIORED VIA CAMERA.
--- NOTE | 2017-02-19 01:15 | NUR ---
PT TRIED TO SLIDE OUT OF BARBARA CHAIR. REPOSITIONED PT AND TAKEN TO THE GROUP ROOM FOR CLOSER SUPERVISION.
--- NOTE | 2017-02-19 02:10 | NUR ---
PT IN BARBARA CHAIR IN GROUP ROOM SLEEPING. STAFF MONITORING.
--- NOTE | 2017-02-19 03:03 | NUR ---
24 HR chart check completed.
--- NOTE | 2017-02-19 06:50 | NUR ---
PT SLEPT APPROXIMATELY 3 HOURS THIS SHIFT.
[2017-02-19 07:26] LABS: BASO % 0.6 % (0.0-1.0); EOS # 0.3 10*3/uL (0.0-0.4); EOS % 4.6 % (1.0-4.0); HEMATOCRIT 41.7 % (42.0-52.0); HEMOGLOBIN 13.9 g/dl (14.0-18.0); LYMPH # 1.2 10*3/uL (1.3-4.4); LYMPH % 17.8 % (27.0-41.0); MEAN CELL VOLUME 97.2 fl (80.0-94.0); MEAN CORPUSCULAR HGB 32.4 pg (27.0-31.0); MEAN CORPUSCULAR HGB CONC 33.3 g/dl (33.0-37.0); MEAN PLATELET VOLUME 9.8 fl (9.6-12.3); MONO # 0.6 10*3/uL (0.1-1.0); MONO % 9.2 % (3.0-9.0); NEUT # 4.5 10*3/uL (2.3-7.9); NEUT % 67.2 % (47.0-73.0); PLATELET COUNT AUTOMATED 180 10*3/uL (130-400); RED BLOOD COUNT 4.29 10*6/uL (4.50-5.90); RED CELL DISTRI WIDTH 13.5 % (0-14.5); WHITE BLOOD COUNT 6.8 10*3/uL (4.8-10.8)
[2017-02-19 07:38] VITALS: BP 110/67
[2017-02-19 07:47] LABS: ALBUMIN 3.1 gm/dl (3.1-4.5); ALKALINE PHOSPHATASE 47 U/L (45-117); BUN 22 mg/dl (7-24); CHLORIDE 105 mmol/L (98-107); CHOLESTEROL 124 mg/dL (<200); CREATININE 0.68 mg/dL (0.70-1.30); HDL CHOLESTEROL 43 mg/dl (40-60); LDL CHOLESTEROL 57 mg/dL (9-159); POTASSIUM 4.1 mmol/L (3.5-5.1); SGOT/AST 296 IU/L (3-35); SGPT/ALT 146 U/L (12-78); SODIUM 143 mmol/L (136-145); TOTAL PROTEIN 6.5 gm/dL (6.4-8.2); TRIGLYCERIDES 118 mg/dl (<150); VLDL CHOLESTEROL 24 mg/dL (6-40)
--- NOTE | 2017-02-19 11:00 | NUR ---
Occupational Therapy evaluation completed this date on 3 with full eval to follow. Precautions include fall risk, 3N, impaired balance and safety, moderate complexity level 77561, impaired cognition. Recommend OT per POC and SNF upon d/c to enable possible return home. Thank you for this referral. Na Lucas OTR/L
--- NOTE | 2017-02-19 11:12 | NUR ---
TRINY completed and faxed pasrr today. A competency consult for Dr. Salas has been requested. APS to do Emergency guardianship if pt. deemed incompetent. NH referrals to be made once determination has been made regarding guardianship, therefore referrals will be made to NH per guardian or pt. preference.
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
--- NOTE | 2017-02-19 12:02 | NUR ---
initial insurance clinicals faxed to insurance nurse
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
--- NOTE | 2017-02-19 12:57 | NUR ---
Goal/Exercise/reminiscing Patient was in attendence for a short time. Patient was removed from group to see a DR. While in group patient did not participate even when prompted. Patient was visually confused stating "everyone is getting a bed here because theyre all locking us up." Patient was taken to another room shortly after that to see
--- NOTE | 2017-02-19 15:28 | NUR ---
ALERT AND CONFUSED PER USUAL. UNABLE TO ANWSER MOST QUESTIONS APPROPRIATELY. NO AGGRESSIVE OR COMBATIVE BEHAVIORS NOTED NOTED. VISUAL HALLUCINATIONS QUESTIONABLE D/T PICKING AT UNSEEN THINGS. PREET TRUJILLO AWARE OF AST AND ALT. SPEECH IS NON SENSICAL DURING INTERACTIONS WITH STAFF. NO TOUBLE SWALLOWING NOTED. SEE [facility] FLOW SHEET FOR SPECIFIC MONITORING.
[2017-02-19 20:10] VITALS: BP 109/72
--- NOTE | 2017-02-20 03:48 | NUR ---
PATIENT CONFUSED. PATIENT ATTEMPTED TO THROW CHAIR AND PUSHING ON TABLES WHILE OTHER PATIENTS IN DINING AREA DURING HS SNACK. PATIENT ATTEMPTING TO SLIDE OUT OF GERICHAIR AND ON THE FLOOR. PATIENT DIFFICULT TO REDIRECT. PATIENT WITH VISUAL HALLUCINATIONS AND GRABBING AT OBJECTS IN THE AIR THAT WERE NOT THERE. PATIENT MEDICATED WITH ATIVAN 1MG PO WITH INEFFECTIVE RESULTS. PATIENT AGITATED AND RESTLESS. MEDICATION COMPLIANT.
--- NOTE | 2017-02-20 05:38 | NUR ---
24 HR chart check completed.
[2017-02-20 07:55] VITALS: BP 115/71
--- NOTE | 2017-02-20 10:08 | NUR ---
RESTING IN BARBARA CHAIR AT THIS TIME WITH EYES CLOSED. SPIT OUT ALL AM MEDICATIONS AT THIS TIME. WILL RE-ATTEMPT AT LATER TIME. OBSERVED PT TALKING TO AND LOOKING AT UNSEEN OTHERS. REALITY PRESENTED WITH NO EFFECT.
--- NOTE | 2017-02-20 11:17 | NUR ---
JOSE L IS ALERT AND CONFUSED. HAS BEEN OBSERVED LOOKING AT AND TALKING TO UNSEEN OTHERS. BIZZARRE BEHAVIORS NOTED. SPIT OUT ALL AM MEDICATIONS, WILL REATTEMPT AT A LATER TIME. NO COMBATIVE OR AGGRESSIVE BEHAVIORS NOTED. PLEASANT WITH STAFF UPON INTERACTIONS. SPEECH IS NON SENSICAL MOST OF THE TIME DURING INTERACTIONS WITH PATIENT. UNABLE TO EDUCATE PT ABOUT MEDICATIONS D/T ACUTE CONFUSION. SEE [facility] FLOWSHEET FOR SPECIFIC MONITORING.
--- NOTE | 2017-02-20 16:58 | NUR ---
PATIENT EATING DINNER AT THIS TIME.
--- NOTE | 2017-02-20 18:22 | NUR ---
INCREASED A/V HALLUCINATIONS NOTED AT THIS TIME. UNRECEPTIVE TO REALITY.
[2017-02-20 20:00] VITALS: BP 113/79
--- NOTE | 2017-02-20 21:00 | NUR ---
TALKING TO FAMILY MEMBER ON PHONE. SPEECH GARBLED AND SLURRED. POSITIVE SIGNS OF HALLUCINATIONS HE IS REACHING OUT INTO AIR AND TAPPING WINDOWS IF TO GRAB SOMETHING. SPEECH SLOW BUT ABLE TO UNDERSTAND A FEW WORDS INTERMITTENTLY. MEDICATION COMPLIANT WITH ENCOURAGEMENT. MOVING SELF AROUND IN CHAIR
[2017-02-21 07:52] VITALS: BP 108/73
--- NOTE | 2017-02-21 13:41 | NUR ---
PATIENT TOILETED AT THIS TIME. URINE NOTED TO BE DARK LORAINE AND FOUL SMELLING. REQUESTED UA C&S. STATES WILL ENTER NEW ORDERS.
--- NOTE | 2017-02-21 13:58 | NUR ---
PATIENT ASSISTED BACK TO TOILET PER REQUEST TO HAVE A BOWEL MOVEMENT. PATIENT ASSISTED TO TOILET BY STAFF. PATIENT DEMANDING STAFF TO LEAVE ROOM AND STATES "I CAN'T GO UNLESS YOU LEAVE ME." PATIENT EDUCATED ABOUT FALL RISK POLICY AND PRECAUTIONS. PATIENT VERBALIZED UNDERSTANDING AND AND REQUESTS PRIVACY AGAIN. EDUCATED PATIENT TO PULL CALL LIGHT WHEN HE IS FINISHED, PATIENT VERBALIZED UNDERSTANDING. 1400: PATIENT CALLING OUT "HELP." THIS RN ENTERED BATHROOM AND OBSERVED PATIENT LAYING ON FLOOR TO LEFT SIDE. PATIENT STATES " I KNOW, I DIDN'T LISTEN, I KNOW I DIDN'T PULL THE CORD. I'M SORRY IT WASN'T YOUR FAULT, YOU DIDN'T DO ANYTHING WRONG, I SHOULD'VE LISTENED. " PHYSICAL ASSESSMENT COMPLETED, SKIN TEAR TO LEFT ELBOW OBSERVED WITH LIGHT BLEEDING NOTED. PT COMPLAINTS OF LEFT ARM PAIN. ROM TO UPPER EXTREMITIES COMPLETED WITHOUT DIFFICULTY. PATIENT DENIES HITTING HIS HEAD, STATES "ONLY MY ARM." ASSISTED BACK TO CHAIR BY STAFF. VITALS TAKEN AND FOLLOWS: 98.6, 92, 18, 116/79, 99% RA. NOTIFIED AND UPDATED. STATES WILL BE UP TO EXAMINE PATIENT.
--- NOTE | 2017-02-21 14:17 | NUR ---
NURSING TRUCKER NOTIFIED OF INCIDENT AND PICTURES TAKEN OF SKIN TEAR.
--- NOTE | 2017-02-21 14:29 | NUR ---
DR. GARCIA, DR. HEMPHILL AND DR. ROSENTHAL HERE TO SEE PT AT THIS TIME.
--- NOTE | 2017-02-21 15:42 | NUR ---
NOTIFIED OF XRAY RESULTS WITH NNO.
--- NOTE | 2017-02-21 15:57 | NUR ---
PATIENT IS ALERT AND ORIENTED TO PERSON AND PLACE THIS SHIFT. AFFECT IS BRIGHTER AND APPROPRIATE UPON INTERACTIONS WITH PT. NO HALLUCINATIONS, DELUSIONS, OR BEHAVIORS NOTED. DENIES ANY SI/HI. STATES HE IS STARTING TO FEEL BETTER. CONVERSING APPROPRIATELY WITH STAFF THROUGHOUT THE SHIFT. MEDICATION COMPLIANT WITHOUT DIFFICULTY. NAPS INTERMITTENTLY DURING THE DAY. APPETITE GOOD FOR LUNCH, ATE 100%, REFUSED BREAKFAST. TAKING FLUIDS WELL. CONTINENT ALL SHIFT. SHOWERED AND SHAVED WITH ASSISTANCE OF MT. IMPROVEMENT NOTED FROM YESTERDAY. WILL CONTINUE TO PRESENT REALITY WHEN NEEDED AND ENCOURAGE PT TO ATTEND AND PARTICIPATE IN GROUP THERAPY. Q15 MIN OBSERVATION CHECKS PER ORDERS.
--- NOTE | 2017-02-21 17:21 | NUR ---
PRN OXYCODONE GIVEN AT THIS TIME PER PT REQUEST FOR LEFT ARM PAIN UNRELIEVED WITH REPOSITIONING. WILL CONTINUE TO MONITOR FOR EFFECTIVENESS.
[2017-02-21 20:00] VITALS: BP 145/59
--- NOTE | 2017-02-21 20:59 | NUR ---
MOVES SELF AROUND IN CHAIR. CURRENTLY TALKING ON PHONE WITH FAMILY
--- NOTE | 2017-02-21 21:30 | NUR ---
INTERACTIVE WITH STAFF. ATTEMPTING TO HOLD CONVERSATON BUT FLIGHT OF IDEAS AND PERIODS OF WORD SALAD WERE NOTED. CLIENT SYMPATHETIC WITH PEERS IN ROOM. WORRIED ABOUT OF FEMALE PEER AND HER ANGER, FEELS IF HE SKIPPED HIS SNACK SHE WOULD BE BETTER. REDIRECTED THAT HE IS NOT THE CAUSE AND IF HER OUTBURSTS BOTHER HIM TO MAKE SURE HE SEEKS OUT STAFF. EXTREMELY DIFFICULT TO KEEP ON SUBJECT. APPEARS CORRECT ON MOST OF HIS SUBJECTS BUT CAN'T COMPLETE A CONVERSATION WITHOUT CHANGING SUBJECTS, WHICH HE IS AWARE HE IS DOING. EMOTIONAL SUPPORT PROVIDED
--- NOTE | 2017-02-22 01:28 | NUR ---
24 HR chart check completed.
--- NOTE | 2017-02-22 04:01 | NUR ---
ATTEMPTED TO GET OUT OF BED A SECOND TIME IN LESS THAN HALF AN HOUR. PO FLUIDS PROVIDED. TALKED WITH CLIENT AND REORIENTED TO PLACE DATE AND TIME. CLIENT UNABLE TO HOLD A CONVERSATION WITHOUT CHANGING SUBJECTS MID SENTENCE. ALL HIS CONVERSATIONS THIS SHIFT HAVE REVERTED TO BOTH HIS FRIEND MISHA IN [place] OR HIS DAUGHTER IN [facility]. THIS TIME HE STARTED DISCUSSING HIS PARENTS DEATHS 20 AND 30 YEARS AGO AND WHAT HE THINKS HIS DAD WOULD SAY TO HIM ABOUT HIS PROBLEMS. VERY DIFFICULT TO REDIRECT BACK TO TOPIC OF HIS TREATMENT PLAN. EMOTIONAL SUPPORT PROVIDED. WILL CONTINUE TO MONITOR
--- NOTE | 2017-02-22 05:12 | NUR ---
DISCUSSED IMPORTENCE OF WORKING WITH PHYSICAL THERAPY TO BUILD UP STRENGTH. DISCUSSED ATTENDING AT LEAST 3 GROUPS DAILY TO IMPROVE HIS SOCIALIZATION AND LEARN NEW COPING TECHNIQUES.
--- NOTE | 2017-02-22 06:53 | NUR ---
C/O PAIN 01/19 BILAT LOWER EXTREMETIES. OXYCODONE GIVEN PER ORDERS. CLIENT STATES" DON'T LET ME GO TO THE BATHROOM BY MYSELF AFTER I TAKE THE PILLS OR I WILL FALL AGAIN". WILL PASS ON
--- NOTE | 2017-02-22 08:06 | NUR ---
02/19/17 Afternoon Coping Skills patient in attendence but did not actively participate. Patient confused and hallucinating,picking at things not there
[2017-02-22 08:16] VITALS: BP 97/64
--- NOTE | 2017-02-22 09:49 | NUR ---
PATIENT SEEN 1:1 OT THIS DATE 15 MINUTES. PATIENT IDENTIFIED BY NAME AND DATE OF . PATIENT COMPLETED BUE AROM STR. ALL PLANES 2 SETS X 10 REPS MOD VERBAL CUES MAINTIAN ATTENTION TO TASK AND TECH/FORM. PATIENT C/O SORE LEFT SHOULDER WITH ACTIVITY COMPLETED TO TOLERANCE. BUE AROM INCLUDED SHOULDER FLEX/EXT, SHOULDER RETRACT/PROTRACT, ELBOW FLEX/EXT, FOREARM SUP/PRONATION, WRIST FLEX/EXT. PATIENT REQUIRED INCREASE TIME DUE TO REDIRECTION REQUIRED. PATIENT SEATED IN W/C THIS DATE WITH LAP CUSHION WITH GOOD POSTURE DEMONSTRATED. PATIENT COMPLETED W/C MOBILITY IN HALLWAY SBA THIS DATE. JUNE POLLOCK/Brian
--- NOTE | 2017-02-22 12:13 | NUR ---
ANNABELLAJOSE L [id number] Please refer to the physician's history and physical for past medical history, comorbid conditions, and allergies. Diagnosis: MAJOR DEPRESSION RECURRENT SEVERE Myles Score: 18,LOW OR NO RISK WOUND DESCRIPTIONS: Location of the wound: left elbow Type of wound: skin tear Thickness: Partial Size: 2.0cm x 1.3cm x 0.1cm Tunneling: none Undermining: none Sinus Tract: none Presence of Exudate: Serosanguineous Amount: Light Color: Red Odor: None Periwound Skin Appearance: Normal Wound edges: approximated Pain (associated with wound): none at time of assessment How does patient state this happened? pt stated he fell down Surface the patient is resting on: Proform SKIN PREVENTION RECOMMENDATION: 1. Pressure redistribution support surface as appropriate 2. Elevate heels 3. Remove boots/TEDS every shift and reapply 4. Head of bed 30 degrees as tolerated 5. Assess nutrition and hydration 6. Manage moisture 7. Avoid the use of containment devices while in bed 8. Use absorptive products on surfaces limit layers of linens on bed 9. Turn and reposition every 1-2 hours in bed and every 1 hour in chair as tolerated 10. Weight shifts every 15 minutes while up in chair 11. Offloading with pillows or device to keep heels elevated off bed 12. Monitor skin at least every shift 13. Inspect under medical devices twice a day WOUND TREATMENT RECOMMENDATIONS: skin tear guideline NSS sureprep to surrounding wound cover wound bed with therahoney then apply optifoam gentle.
--- NOTE | 2017-02-22 13:23 | NUR ---
Goals/Exercise/Positive Thoughts & Affirmation Patient did attend group this morning as well as actively participated. Patient showed some confusion but no hallucinations throughout group
--- NOTE | 2017-02-22 13:47 | NUR ---
PHYSICAL THERAPY Grayson seen this AM 1:1 for his physical therapy session. Pt was up in his wheelchair in the day room having his breakfast. Stopped back later this AM and Grayson said he would try. Wheeled pt out into her taylor, verbal cues from sit to stand and to push off from his wheelchair to stand with MAX A X 1, standing balance with wheeled walker MOD A X 1, sit to rest. Sit/stand MAX A X 1, gait with wheeled walker 45' X 1, cueing to stand tall with MOD to MAX A X 1. Pt back up in his wheelchair followed by act Ex to bilateral LE of marching, LAQ's, and ankle pumps working in 20 reps each with cueing for each Ex. Pt taken back into the day room. GUILLERMO BAILEY WAFER SLICER.
--- NOTE | 2017-02-22 14:09 | NUR ---
[facility], next review is 02/21/17
--- NOTE | 2017-02-22 14:53 | NUR ---
Mood is noted to be depressed with some irritability present. Exhibits a low frustration tolerance and becomes easily agitated when needs are not immediately met. On 1:1 interaction Grayson is verbal. Numerous delusions were voiced (grandiose in nature) during his conversation with staff. He denies experiencing any sensory disturbances when questioned and no overt s/s are noted. Oriented to person and place. Appetite is good. international sales manager, Louise, was in to see him today and she also spoke with social worker assistant as well. Noted to become angered during toileting with milieu and it is reported that he slammed the toilet lid down. Altered insight and judgement due to current mental status. Thu Youssef, wound care in to see him today and orders were obtained for dressing on left elbow. Circumstantial and tangential. Refer to [facility] flowsheet for specific monitoring.
--- NOTE | 2017-02-22 15:17 | NUR ---
Dr. Salas evaluated pt, demmed incompetent but does not warrant an Emergency Guardianship filing per Dr. Salas, TRINY notified JOSE Sorenson, who is concerned that pt. may change his mind to not return home, home in "non-liveable" conditions. TRINY met with pt. and Louise, ptLefty johnson to go to another place to live. SW will fax Guardianship info. once she it reciesves it from Dr. Salas. Louise the will contact [facility], ranjit galan to have him refer pt. for boarding home stay, until a boarding home is available, will attempt to get pt. approved for 30 rehab stay. TRINY will send out referrals to [place] Wednesday. 02/23/17.
--- NOTE | 2017-02-22 15:24 | NUR ---
Positive Self-Talk Patient did attend group. Patient attempted to participate but spoke of nothing but negativity about him and his life. Explained to patient that what hes saying she negative about himself but patient refused to believe AC. Patient continually disagreed with definition of positivity.
--- NOTE | 2017-02-22 15:45 | NUR ---
Urine obtained for UA and culture on this day and sent to lab.
[2017-02-22 15:50] LABS: BILIRUBIN NEGATIVE (NEGATIVE); BLOOD TRACE-INTACT (NEGATIVE); CLARITY SL CLOUDY (CLEAR); COLOR YELLOW (YELLOW); GLUCOSE NEGATIVE (NEGATIVE); KETONE TRACE (NEGATIVE); LEUKO ESTERASE NEGATIVE (NEGATIVE); NITRITE NEGATIVE (NEGATIVE); SPECIFIC GRAVITY 1.025 (1.005-1.030)
[2017-02-22 16:10] LABS: BACTERIA TRACE; RBC 0-2 rbc/hpf (0-2)
[2017-02-22 20:00] VITALS: BP 101/69
--- NOTE | 2017-02-22 20:47 | NUR ---
WHEELING SELF AROUND WITHOUT DIFFICULTY. REQUESTING OXYCODONE BUT EXPLAINED HE JUST HAD IT LESS THAN 6 HOURS AGO AND NEEDS TO WAIT. VERBALIZED UNDERSTANDING. LESS FLIGHT OF IDEAS DURING OUR CONVERSATION TONIGHT BUT IS FIXATED WITH DISCUSSING DAUGHTER IN [facility] AND FRIEND IN [place]. DIFFICULT TO GET HIM BACK ON TRACK OF CURRENT CONVERSATION. GOOD 1:1 DECREASE IN DEPRESSION NOTED DUE TO PROPER MEDICATION REGIME AND GROUP THERAPY. MEDICATION EDUCATION WITH EACH MEDICATION PASS COMPLETED. UNDERSTANDS NEED TO NOT GET UP WITHOUT ASSISTANCE BUT MUST BE REMININDED MULTIPLE TIMES EACH SHIFT.
--- NOTE | 2017-02-22 21:31 | NUR ---
ASSISTED INTO BED. CLIENT HAS INCREASED CONFUSION AND IS AGGITATED AND ARGUMENTATIVE. KEEPS ASKING FOR HIS OXYCOTIN AND CLAIMS WE ARE WITH HOLDING IT BECAUSE IT IS PRN AND THAT MEANS ANYTIME HE WANTS IT HE CAN HAVE IT. TRIED MULTIPLE TIMES TO EXPLAIN IT IS PRN BID BUT HE CLAIMS WE ARE LYING. UNABLE TO REDIRECT. WILL MONITOR
--- NOTE | 2017-02-22 22:56 | NUR ---
CALLED TO PATIENTS ROOM. STATES HE IS WATCHING THE CLOCK AND IT IS TIME TO GET HIS OXYCODONE. CLIENT DOES NOT APPEAR TO BE IN ANY TYPE OF DISCOMFORT BUT STATES HIS LEG PAIN IS 10/10. WILL UPDATE DOCTORS IN MORNING. MEDICATION GIVEN PER ORDERS
--- NOTE | 2017-02-22 23:15 | NUR ---
CALLED TO ROOM CLIENT ARGUMENTATIVE AND DENIES GETTING ANY MEDICATIONS. DENIES GETTING HIS PAIN MEDICATIONS. TOLD ME "YOU ARE IN A WORLD TROUBLE FOR MESSING WITH MY MEDICATIONS MY PRN AND STUFF MEDICATIONS, DR VALDO SHABAZZ IN [place] ARE GOING TO GET YOU FOR MY PRN MEDICINES YOUR HIDING." DENIES GETTING PM MEDICATIONS TONIGHT. UNABLE TO REDIRECT.
--- NOTE | 2017-02-23 00:52 | NUR ---
DR Ezra SEO HERE TO SEE OTHER CLIENT. INFORMED HER OF CLIENTS MENTAL STATUS AND HIS INABILITY TO REMEMBER GETTING MEDICATIONS EARLIER TONIGHT.
--- NOTE | 2017-02-23 00:54 | NUR ---
EYES CLOSED. APPEARS MEDICATION EFFECTIVE
--- NOTE | 2017-02-23 03:30 | NUR ---
CLIENT YELLING "MOSHE MESA" WHEN ASKED WHAT HE NEEDED HE SAID HE NEEDS TO GO HOME TODAY TO TAKE CARE OF HIS CATS BUT HE CAN'T LIVE THERE YOU KNOW PRN MEDICATIONS AND CAN'T. UNABLE TO REDIRECT. OFFERED TO ASSIST IN REPOSITIONING AND HE REFUSED. MOSTLY STAYS ON BACK DOES MOVE SLIGHTLY SIDE TO SIDE
--- NOTE | 2017-02-23 03:32 | NUR ---
24 HR chart check completed.
--- NOTE | 2017-02-23 06:51 | NUR ---
MEDICATION GIVEN VIA SYRING
--- NOTE | 2017-02-23 07:33 | NUR ---
TRINY faxed Guardianship paperwork to JOSE Chavez.
[2017-02-23 08:00] VITALS: BP 106/65
--- NOTE | 2017-02-23 09:56 | NUR ---
PATIENT SEEN 1:1 OT THIS DATE 15 MINUTES. PATIENT IDENTIFIED BY NAME AND DATE OF . PATIENT COMPLETED W/C MOBILITY FROM DAY ROOM TO QUIET ROOM OCCASIONAL MIN A TO NEGOTIATE TURNS FOR SAFETY. PATIENT COMPLETED ACTIVITY TO TOLERANCE. COMPLETED BUE AROM ALL PLANES X 10-15 REPS PATIENT REQUIRING FREQ VERBAL CUES REDIRECT ATTENTION TO TASK. PATIENT VERBALIZED THAT HE WAS TIRED AND THAT WAS ALL HE COULD DO. JUNE GAVIN
--- NOTE | 2017-02-23 11:04 | NUR ---
SW asked Freida, community support associate for assistance in faxing out referrals for pt. to be admitted at [place] for 30 day rehab. pasrr not back yet.
--- NOTE | 2017-02-23 11:14 | NUR ---
PHYSICAL THERAPY Grayson seen this AM 1:1 for his therapy session. Pt was up in the day room seen after his breakfast. Wheeled out into the taylor for Pt's gait. Transfer sit/stand with MOD RETAIL FIELD REPRESENTATIVE X 1, up on wheeled walker standing balance MIN A X 1. Gait total 63' X 1, MOD RETAIL FIELD REPRESENTATIVE X 1, this AM and much better then yesterday. Cueing for Pt gait, walker, turn safety and he even said that he was feeling better today. End with going over Ex to bilateral LE of marching, LAFaby's, ankle pumps with cueing for each Ex. Pt wheeled back into the day room after treatment. GUILLERMO BAILEY SALES ADMINISTRATION SPECIALIST.
--- NOTE | 2017-02-23 11:27 | NUR ---
SW called to check on pasrr, cattle inspector needs to assess eyt.
--- NOTE | 2017-02-23 11:42 | NUR ---
Holiday remenissing, orientation and goals. Patient present and engaged in group. Patient requires frequent redirection back to topic due to inappropriate discussion. Patient with no outbursts or reports of hallucinations.
--- NOTE | 2017-02-23 15:12 | NUR ---
Coping skills Patient present during half of group with limited participation. Patient agitated with questions being asked. Patient was not disruptful during group however refused to answer questions.
--- NOTE | 2017-02-23 16:15 | NUR ---
NOTIFIED OF VPA RESULTS, NEW ORDERS RECEIVED TO CHANGE DEPAKOTE TO 1500MG AT HS, CONVERSATION WITNESSED BY 2ND RN ALEXIS PINZON.
--- NOTE | 2017-02-23 16:44 | NUR ---
PT ALERT TO PERSON ONLY. PT MED COMPLIANT WITHOUT DIFFICULTY, MED EDUCATION PROVIDED. PT ANGRY/IRRITABLE AT TIMES. PT CAN BE DISRUPTIVE YELLING OUT, PT REDIRECETD WITH SUCCESS. PT PROPELS SELF THROUGHOUT UNIT IN WHEELCHAIR. PT CONTINENT OF BOWEL AND BLADDER. PT DENIES ANY HOMICIDAL/SUICIDAL THOUGHTS. PT REPORTS SEEING SQUIRRELS IN THE ROOM WITH HIM. REALITY PRESENTED TO PT, PT ARGUMENTATIVE WITH STAFF. PLAN IS TO ENCOURAGE PT TO VOICE HALLUCINATIONS OR DELUSIONS, PRESENT REALITY TO PT WITH EACH INTERACTION AND NEEDED, MONITOR PT BEHAVIORS ON Q15 MIN SAFETY CHECKS, ENCOURAGE PT TO VOICE ANY SUICIDAL THOUGHTS, CONTRACT FOR SAFETY IF SUCH THOGUHTS ARISE.
[2017-02-23 20:13] VITALS: BP 102/62
--- NOTE | 2017-02-23 20:36 | NUR ---
PATIENT RECIEVED ROXICODONE 10MG PRN ORDERED FOR C/O BILATERAL LEG PAIN. PATIENT REFUSED RATING PAIN AT THIS TIME STATING "I DONT KNOW HOW THEY EXPECT ME TO RATE PAIN, THATS RIDICULOUS, I DONT KNOW WHAT THEY EXPECT ME TO SAY, THE BACK IS WORSE THAN THE FRONT AND THATS IT". NO OTHER PHYSICAL COMPLAINTS VOICED AT THIS TIME. NO SIGNS OR SYMPTOMS OF DISTRESS NOTED.
--- NOTE | 2017-02-23 21:30 | NUR ---
PATIENT IN BED AT THIS TIME, NO C/O OF PAIN NOTED. RESPIRATIONS EASY AND REGULAR, NO SIGNS OR SYMPTOMS OF DISTRESS NOTED. PRN ROXICODONE GIVEN AT 2035 EFFECTIVE AT THIS TIME.
--- NOTE | 2017-02-23 23:56 | NUR ---
PATIENT IN DINING ROOM EATING SNACK DURING HS MEDICATION PASS. DURING 1:1 PATIENT STATED "I WISH I GOT ALONG WITH MY FATHER BETTER WHEN I WAS A KID, HE ONCE RAN OVER KITTENS INFRONT OF ME AND BECAUSE OF IT I THREW GLASS BOTTLES THROUGH HIS GARAGE WINDOWS". PATIENT PROVIDED WITH EMOTIONAL SUPPORT AT THAT TIME. DENIES FEELINGS OF SI/HI AND HALLUCINATIONS. NO NOTED RESPONDING TO INTERNAL STIMULI. PATIENT ALSO INFORMED THAT IF THOUGHTS ARISE TO HARM SELF OR OTHERS TO NOTIFY STAFF, PATIENT CONTRACTED FOR SAFETY. PATIENT NOTED TO BE ANGRY AND IRRITABLE AT TIMES WITH STAFF, REDIRECTED WITHOUT DIFFICULTY. MEDICATION COMPLAINT AFTER REVIEW. PATIENT CURRENTLY IN BED WITH EYES CLOSED. RESPIRATIONS EASY AND REGULAR, NO SIGNS OR SYMPTOMS OF DISTRESS NOTED. REFER TO [facility] FLOWSHEET FOR SPEFICIC MONTIORING.
--- NOTE | 2017-02-24 06:04 | NUR ---
PATIENT OBSERVED ON Q 15 MIN SAFETY CHECKS TO HAVE SLEPT APPROX 6 HOURS INTERRUPTED WITH MULTIPLE AWAKENINGS TO PULL ON HIS BODY ALARM. MAXIMUM REDIRECTION NEEDED BY STAFF. NO SIGNS OR SYMPTOMS OF DISTRESS NOTED.
[2017-02-24 07:57] VITALS: BP 111/67
--- NOTE | 2017-02-24 09:06 | NUR ---
PHYSICAL THERAPY Grayson seen this AM 1:1 for his therapy session and having a much better day today and Dr Collins could see that. Transfer sit/stand CGA X 1, standing balance with wheeled walker CG X 1. Gait with wheeled walker total 360' X 1, CG X 1, no LOB and having just a good morning. Working in gait balance with gait backwards, right and left side stepping, 360 turn with MIN CONTRACTS MANAGER X 1, no LOB. End with going over act Ex to bilateral LE of his marching, LAFaby's,. GUILLERMO BAILEY BUSINESS APPLICATIONS MANAGER.
--- NOTE | 2017-02-24 09:16 | NUR ---
BOBY SMITH CENP ON UNIT TO ASSESS PT.
--- NOTE | 2017-02-24 09:44 | NUR ---
[facility]OU RETURNED CALL, DENIED PT ADMISSION.
--- NOTE | 2017-02-24 10:34 | NUR ---
ALEXIS DIVISION MERCHANDISE MANAGER OF [facility] HERE TO ASSESS PT.
--- NOTE | 2017-02-24 11:25 | NUR ---
[facility] denied pt. admission at facility. Yodit Rome came to assess and will let SW know if pt. is accepted and if he will need a pre-cert. sheron Patricia. liaison called and states [facility] not [facility] bed but [facility] does. SW let the facilities know that the pediatric hospitalist has not been here yet to assess for pasrr but will let them know when pasrr approved and what facility the Emerg. Guardian will be placing pt. in. Emergency Guardianship being filed today by Amanda Garcia, APS, [employer]
--- NOTE | 2017-02-24 11:51 | NUR ---
Stress/anger management, goals and orientation/trivia group Patient did not attend group due to just laying down. Will attempt group at later date.
--- NOTE | 2017-02-24 15:08 | NUR ---
Games and relaxation group Patient continues to sleep throughout the day and afternoon group. Will attempt to engage in group at a later time.
--- NOTE | 2017-02-24 15:13 | NUR ---
Amanda Garcia from [facility] will be here around 330 pm to serve pt. with E. Guardianship paperwork and tell him about the hearing on Wednesday. Hand Ii Tube Bender Fady Leiva has been assigned. His number is office and his cell is .
--- NOTE | 2017-02-24 15:38 | NUR ---
TRINY, Nurse ernesto, and APS worker amanda delgado presentsed pt. with Emergency Guardianship paperwork that was explained to him by Amanda Delgado, APs, and pt's copy is in pt. grant administrator his room per pt. request. Amanda explained to pt. pt's right to attending the hearing on Wednesday. pt appeared to understand that he was being assigned a temporarly guardian.
[2017-02-24 20:16] VITALS: BP 113/61
--- NOTE | 2017-02-24 21:00 | NUR ---
PATIENT ALERT TO PERSON AND PLACE. PATIENTS MOOD DEPRESSED AND STABLE. PATIENT WITH NO HALLUCINATIONS OR DELUSIONS AT THIS TIME. PATIENT IN DINING AREA AFTER RECIEVING A TELEPHONE CALL FROM FRIEND IN [place]. PATIENT STATED TO THIS NURSE THAT HIS FRIEND TOLD HIM THAT SHE CAN SEE THE PARKING LOT AT THE HOSPITAL FROM HER HOME FROM HER COMPUTER. PATIENT STATED TO NURSING THAT THERE WERE THIRTEEN [facility] IN [place] AND IT IS KNOWN TO BE THE CITY OF [facility]. PATIENT COULD NOT RECALL THAT THIS NURSE HAD TAKEN CARE OF HIM BEFORE AND PATIENT STATED THAT HE COULD NOT REMEMBER AND HE WAS PROBABLY OUT OF IT. PATIENT COOPERATIVE WITH CARE. PATIENT TREATMENT PLAN FOCUSES ON ALTERED MENTAL STATUS CHANGE RELATED TO INCREASED CONFUSION AND FALL RISK. PATIENT CONTINUES FALL PRECAUTIONS PER POLICY AND TO TAKE MEDICATIONS ORDERED
--- NOTE | 2017-02-25 03:58 | NUR ---
24 HR chart check completed.
--- NOTE | 2017-02-25 06:11 | NUR ---
Q 15 MINUTE SAFETY CHECKS MAINTAINED. SLEPT > 8 HOURS THROUGHOUT SHIFT. VOICES NO COMPLAINTS OF PAIN OR DISCOMFORT AT THIS TIME
[2017-02-25 08:11] VITALS: BP 110/64
--- NOTE | 2017-02-25 10:20 | NUR ---
SW met with pt and CM from [facility]. pt. was appropraite with CM and asked questions in regards to his rehab stay and where he was going after that. The CM, Fady galan was talking with pt. about going to a AL facility and pt. seemed open to that after his rehab stay. pt. did ask about his "cats" also and seemed to be "ok" that the [employer] was taking care of some of them and Louise dunn, his CM from [facility] was taking care of the other one's at his home until the "cats" can be placed. pt. asked SW where he would be going and SW let him know that at this point in time, [facility] has a bed for him and possibly [facility], but SW needs to get permission from pt's guardian as to where pt. is to be placed due to pt. being deemed "incompetent".
--- NOTE | 2017-02-25 10:26 | NUR ---
PT IS ALERT AND ORIENTED TO PERSON AND PLACE WITH PERIODS OF CONFUSION AND ST/LT MEMORY DEFICITS NTOED. MOOD IS STABLE WITH NO BEHAVIORS, HALLUCINATIONS, OR DELUSIONS NOTED. CALM AND COOPERATIVE WITH STAFF. ABLE TO VERBALIZE NEEDS AND WANTS. NAPS INTERMITTENTLY THROUGHOUT SHIFT. MEDICATION COMPLIANT WITHOUT DIFFICULTY. NO COMBATIVE OR BIZARRE BEHAVIORS OBSERVED. WILL CONTINUE TO REORIENT FREQUENTLY T/O THE SHIFT AND PRESENT REALITY NEEDED. Q15 MIN OBSERVATIONS CHECKS PER ORDERS. ENCOURAGE PT TO ATTEND AND PARTICIPATE IN GROUP THERAPIES.
--- NOTE | 2017-02-25 10:39 | NUR ---
TRINY spoke with Swiss Type Screw Machine Operator ranjit Leiva esq. he states that he would prefer pt. be admitted to [facility], [facility] or [facility]. Referrals were sent to [facility] and [facility].
--- NOTE | 2017-02-25 11:28 | NUR ---
Goals,Exercise and Trivia Patient was not in attendence for group. Patient was in the quiet room having meeting. Apparently after his meeting he went to his room
--- NOTE | 2017-02-25 11:59 | NUR ---
PHYSICAL THERAPY Grayson seen this AM 1:1 for his therapy session. Transfer sit/stand CGA X 1. gait with wheeled walker 400' X 1, CG to just supervision X 1, no LOB. Working in gait balance with gait backwards, right and left side stepping, 360 turn, with CGA X 1 to MIN A X 1, no LOB, Pt is improving with his transfers and gait. GUILLERMO BAILEY PITCH GATHERER.
--- NOTE | 2017-02-25 12:01 | NUR ---
pc to [facility], spoke with Sarah, the Sw who states that the information still needs reviewed before they can dtermine if pt. can be accepted. A vm had also been left for Stacey gonzales, the Administraot too per medical student Ema Correa.
--- NOTE | 2017-02-25 14:16 | NUR ---
[facility] denied pt. admission at this time.
--- NOTE | 2017-02-25 15:31 | NUR ---
Thanks Day Reminiscing Patient did not attend group this afternoon. Patient was asleep in his room and not waking up
--- NOTE | 2017-02-25 18:15 | NUR ---
PATIENT IS ALERT AND ORIENTED TO PERSON AND PLACE. PLEASANTLY CONFUSED AT TIMES THROUGHOUT THE SHIFT. APPETITE IS EXCELLENT THIS SHIFT, ATE 100% OF ALL MEALS. MEDICATION COMPLIANT WITHOUT DIFFICULTY. HAS BEEN NAPPING INTERMITTENTLY DURING THE DAY. HAS BEEN NON COMPLIANT WITH FALL PRECAUTION MEASURES/POLICY, HAS BEEN GETTING UP OUT OF CHAIR, TRANSFERING AND AMBULATING WITHOUT ASSISTANCE. FALL PRECAUTION EDUCATION COMPLETED WITH MINIMAL EFFECT FOR SHORT PERIODS OF TIME. HAS BEEN TAKING BODY ALARMS OFF WITHOUT TELLING STAFF. AGAIN, EDUCATIONS COMPLETED T/O THE DAY WITH MINIMAL EFFECT FOR SHORT PERIODS OF TIME. Q15 MIN OBSERVATION CHECKS MAINTAINED PER ORDERS.
[2017-02-25 19:41] VITALS: BP 120/77
--- NOTE | 2017-02-25 20:21 | NUR ---
PT EDUCATED REGARDING THE IMPORTANCE OF COMPLYING WITH FALL PRECAUTIONS. PT VERBALIZE LIMITED UNDERSTANDING. REFUSES ASSISTANCE TO TRANSFER AND WITNESSED BY STAFF REMOVING BODY ALARM. WILL CONTINUE TO CLOSELY MONITOR PT TO INSURE SAFETY.
--- NOTE | 2017-02-26 01:04 | NUR ---
24HR CHART CHECKS COMPLETE
--- NOTE | 2017-02-26 01:05 | NUR ---
PT ALERT AND ORIENTED X3. AFFECT IS NOTICEABLY BRIGHTER. PERIODS OF CONFUSION EXIST. PT WAS CONVINCED HE HAS SEEN THIS NURSE WORKING ANOTHER JOB WITH ANOTHER ALIAS. NURSE UNABLE TO PRESENT REALITY TO THE PATIENT. NO AGITATION/AGGRESSION NOTED. PT DENIES SI/HI, HALLUCINATIONS, OR DELUSIONAL THOUGHT PROCESSES. SOCIALIZED WELL WITH PEERS. CONTINUE TO MONITOR FOR CHANGES IN BEHAVIOR. REFER TO [facility] FOR ADDITIONAL INFO.
--- NOTE | 2017-02-26 06:47 | NUR ---
PT SLEPT >8HRS WITH ONE INTERRUPTION TO USE THE RESTROOM.
[2017-02-26 07:46] VITALS: BP 121/79
--- NOTE | 2017-02-26 07:57 | NUR ---
TRINY spoke with pt. who is alert and oriented x 3. pt. states "when can i get out nof here". TRINY let pt. know that once the pasrr comes back then [facility] has accepted him. D/C plan is to be admitted at [facility] if [facility] is approved, if not, MARTIR dunn and Martir Metzger are working on an Assited living placement.
--- NOTE | 2017-02-26 07:59 | NUR ---
pt. will need a prior authorization before he can be admitted at [facility].
--- NOTE | 2017-02-26 08:01 | NUR ---
TRINY asked [facility] [employer] how soon prior authorization can be started for possible d/c wednesday if pasrr back by [facility].
--- NOTE | 2017-02-26 09:46 | NUR ---
PHYSICAL THERAPY Patient was seen this am 1:1 for therapy supine in bed, reporting no new c/o's at this time. Patient trasfers sup to stand Min/CGA x 1 and ambulated MANAGER LAN/CGA, 15'x 1, while completing safe toilet transfer with use of single grab bar. Patient also ambulated > 300 feet x 1, pushing w/c, demonstrating increased stride with smoother arthur. Patient returned to EOB sit and remained with POLLOCK who just arrived. Therapist advised OT primary teaching assistant that patient requires either bed or body alarm for safety and will continue per POC as tolerated to improve functional mobility / standing balance. Elias Cabral, APPLIANCE REPAIRER
--- NOTE | 2017-02-26 10:38 | NUR ---
PATIENT SEEN 15 MINUTES OT THIS DATE. PATIENT IDENTIFIED BY NAME AND DATE OF . PATIENT COMLETED BUE AROM SEATED EOB WITH F+ SIT BALANCE ALL PLANES X 20 REPS WITH MOD VERBAL CUES TECH/FORM AND MAINTAIN ATTENTION TO TASK. PATIENT DEMONSTRATED STANDARD TOLERANCE APPROX 1-2 MIN THIS DATE FAIR BALANCE UE SUPPORT. COMPLETED STAND PIVOT XFER CGA BED TO W/C WITH MIN VERBAL CUES SAFETY WITH LAP BEN IN PLACE. NO FURTHER NEEDS VERBALIZED. JUNE POLLOCK/Brian
--- NOTE | 2017-02-26 11:11 | NUR ---
PATIENT IS ALERT TO PERSON, PLACE AND DATE WITH INTERMITTANT CONFUSION; ABLE TO VOICE NEEDS. RESPIRATIONS ARE EASY, NON-LABORED ON ROOM AIR. DENIES ANY HALLUCINATIONS, DELUSIONS, HI/SI OR PAIN. NO RESPONSE TO INTERNAL STIMULI NOTED SO FAR TODAY. PATIENT IS CALM, INTERACTIVE WITH STAFF, PARTICIPATES IN THERAPY WTIH MUCH IMPROVEMENT NOTED. MOOD IS STABLE. NO BEHAVIORS NOTE. MEDICATION COMPLIANT WITH EDUCATION PROVIDED.Q 15 MINUTE SAFETY CHECKS MAINTAINED. ENCOURAGED TO USE CALL LIGHT FOR ASSISTANCE. CONTINUE TO MONITOR FOR BEHAVIORS AND REDIRECT NEEDED.
--- NOTE | 2017-02-26 13:08 | NUR ---
Goals/Exercise/Getting Rid of Stress Patient did not participate in group this morning. Patient was in bed. Tried encouraging patient to come join group but patient refused. Patient told this AC he wanted to take a nap because he was going home today. AC attempted to encourage patient again but patient interupted AC to talk about his cats. Patient did not come to group
--- NOTE | 2017-02-26 15:35 | NUR ---
Movies and Ice Cream Patient did not attend begining of group. Patient was asleep in his room. Patient joined group for the 2nd movie. Patient showed no signs of confussion during movie,patient was also quiet,not discussing the movie too much.
--- NOTE | 2017-02-26 15:47 | NUR ---
Shift chart check completed.
[2017-02-26 19:46] VITALS: BP 116/69
--- NOTE | 2017-02-26 21:14 | NUR ---
PT ALERT AND ORIENTED X3. MEMORY GAPS STILL PRESENT. PT DID NOT REMEMBER TELLING ME A FEW STORIES FROM THE PREVIOUS WRAP KNITTING MACHINE OPERATOR DURING THIS SHIFT. PT IS PLEASANT, MEDICATION COMPLIANT, SOCIALZING WELL WITH PEERS. NURSE ENCOURAGED PT TO REMINISCE ABOUT HIS DAYS A MUSICIAN AT LENGTH IN ORDER TO FOSTER THERAPEUTIC RAPPORT AND INCREASE TRUST. PT RECEPTIVE TO DISCUSSION AND CONVERSED APPROPRIATELY. PT DENIES HALLUCINATIONS, SI/HI, OR DELUSIONAL THOUGHT PROCESSES. CONTINUE TO MONITOR FOR CHANGES IN BEHAVIOR. REFER TO FLOWSHEET FOR ADDITIONAL INFO.
--- NOTE | 2017-02-26 21:40 | NUR ---
PT EDUCATED REGARDING THE IMPORTANCE OF ASKING FOR ASSISTANCE WITH TRANSFERS. PT VERBALIZED UNDERSTANDING AND HAS, TO THIS POINT IN THE SHIFT, REQUESTED ASSISTANCE WITH TRANSFERRING. CONTINUE TO MONITOR FOR COMPLIANCE AND CONINTUE Q15MIN SAFETY CHECKS. ALL ALARMS ACTIVE AND AUDIBLE.
--- NOTE | 2017-02-27 01:18 | NUR ---
24HR CHART CHECK COMPLETE
--- NOTE | 2017-02-27 06:53 | NUR ---
PT SLEPT >8HRS WITH TWO INTERRUPTIONS TO USE THE RESTROOM WITH STAFF ASSISTANCE.
[2017-02-27 07:38] VITALS: BP 111/73
--- NOTE | 2017-02-27 08:22 | NUR ---
PATIENT IS ALERT AND ORIENTED X3 THIS MORNING WITH PERIODS OF ACUTE CONFUSION. CALM, COOPERATIVE, AND APPROPRIATE WITH NURSE DURING MEDICATION ADMINISTRATION. PATIENT ABLE TO VERBALIZE WHEN HE WAS ADMITTED, HE WAS "NOT ACTING LIKE MYSELF, I WAS SAYING I WAS BROUGHT HERE BY SOME SHARKS." IMPROVEMENT IN INSIGHT NOTED. MEDICATION COMPLIANT WITHOUT DIFFICULTY. PRN OXYCODONE GIVEN PER PT REQUEST FOR BILATERAL LEG PAIN, PT REUFSED TO RATE PAIN. WILL CONTINUE TO MONITOR FOR EFFECTIVENESS.
--- NOTE | 2017-02-27 09:00 | NUR ---
PRN EFFECTIVE PER PT.
--- NOTE | 2017-02-27 11:05 | NUR ---
DR. HIDALGO HERE TO SEE PT AT THIS TIME, UPDATE GIVEN.
--- NOTE | 2017-02-27 13:01 | NUR ---
Reminiscing Patient was in attendence as well as participated. Patient occasionally would get off topic but was redirected back with some difficulty. Patient showed some aggression while being redirected but it would soon dissipate.
--- NOTE | 2017-02-27 14:51 | NUR ---
Shift chart check completed.
--- NOTE | 2017-02-27 16:01 | NUR ---
Puzzles Patient did not attend afternoon group. Patient did not want to participate in any type of activity. Patient wanted to go to his room and take a nap
--- NOTE | 2017-02-27 16:57 | NUR ---
PRN OXYCODONE GIVEN AT THIS TIME FOR "FEET" PAIN. PT REFUSED ALL OTHER NON PHARMACOLOGICAL INTERVENTIONS. REFUSED TO RATE PAIN ON SCALE. WILL CONTINUE TO MONITOR FOR EFFECTIVENESS.
--- NOTE | 2017-02-27 17:56 | NUR ---
PRN OXYCODONE EFFECTIVE PER PT.
--- NOTE | 2017-02-27 18:30 | NUR ---
APPETITE EXCELLENT FOR ALL MEALS AND TAKING FLUIDS WELL. HAS BEEN LESS ISOLATIVE WITH AN INCREASE IN POSITIVE PEER INTERACTIONS OBERSERVED. PT ATTENDING AND PARTICIPATING IN MORE GROUP THERAPY TODAY. SLEEPING IN BED AT THIS TIME. RESPIRATIONS EASY AND EVEN. NO ACUTE DISTRESS NOTED. COMPLIANT WITH FALL RISK POLICIES THIS SHIFT, VERBALIZING TO STAFF WHEN IN NEED TO TRANSFER FROM WHEELCHAIR. CONTINUE 15 MIN OBSERVATIONS CHECKS PER ORDERS. RE ORIENT THROUGHOUT THE SHIFT NEEDED. ENCOURAGE PT TO ATTEND AND PARTICIPATE IN GROUP THERAPIES.
[2017-02-27 19:52] VITALS: BP 100/62
--- NOTE | 2017-02-27 20:15 | NUR ---
PATIENT PLEASANT AND COOPERATIVE. PATIENT IN DINING ROOM WITH HS SNACK PROVIDED. PATIENT MOOD STABLE. PATIENT CALM, PURPOSEFUL, INTERACIVE, AND PARTICIPATING. NO HALLUCINATIONS OR DELUSIONS. NO SUICIDAL OR HOMICIDAL IDEATIONS. PATIENT CONTINENT OF BLADDER. PATIENT MEDICAITON COMPLIANT. CARE PLAN FOCUSES ON ALTERED MENTAL STATUS CHANGE AND FALL RISK. PATIENT CONTINUES TO FOLLOW POLICY FOR FALL PRECAUTIONS. PATIENT EASILY REDIRECTABLE TO REALITY WITH SOME PERIODS OF CONFUSION. SEE [facility] FLOW SHEET FOR SPECIFIC MONITORING
--- NOTE | 2017-02-28 06:10 | NUR ---
24 HR chart check completed.
--- NOTE | 2017-02-28 06:19 | NUR ---
Q 15 MINUTE CHECKS MAINTAINED. SLEPT < 7 HOURS THROUGHOUT SHIFT. VOICES NO COMPLAINTS OF PAIN OR DISCOMFORT AT THIS TIME
[2017-02-28 07:43] VITALS: BP 101/63
--- NOTE | 2017-02-28 08:45 | NUR ---
PRN OXYCODONE GIVEN AT THIS TIME FOR NON SPECIFIC PAIN, PT REFUSED TO RATE PAIN ON NUMERICAL SCALE. WILL CONTINUE TO MONITOR FOR EFFECTIVENESS.
--- NOTE | 2017-02-28 09:45 | NUR ---
PRN OXYCODONE EFFECTIVE PER PT.
--- NOTE | 2017-02-28 13:41 | NUR ---
Positive saying loree Patient did attend group as well as participated. Patient did speak inappropriately x 2 and was reminded that was not acceptable and if he continued he would have to leave the group. Patient did apologize and there were no other issues during group
--- NOTE | 2017-02-28 14:32 | NUR ---
SPOKE WITH LEANDRO VICENTE WHO STATES PATIENT IS KNOWN TO BE CONFUSED AND DELUSIONAL WHEN TAKING OPIOID MEDICATIONS AND THAT PATIENT "CLEARS IN HIS HEAD" WHEN HE'S NOT TAKING THEM. UPDATE ON NEW INFORMATION RECEIVED FROM BROTHER AND THAT PATIENT HAS WENT 5 DAYS WHILE ADMITTED TO UNIT WITH NO S/S OF WITHDRAWL REPORTED. STATES WILL DISCONTINUE OXYCODONE MEDICATION.
--- NOTE | 2017-02-28 15:37 | NUR ---
MOOD IS ANGRY/IRRITABLE AT TIMES THROUGHOUT THE SHIFT WHEN STAFF REDIRECTS PATIENT WHEN HE ATTEMPTS TO DOMINATE AND CONTROL UNIT ACTIVITIES AND STAFF. CAN BE DEMANDING TO STAFF AND PATIENTS. ALERT AND ORIENTED TO PERSON AND PLACE WITH PERIOD OF ACUTE CONFUSION OBSERVED. ST/LT MEMORY DEFICITS NOTED UPON INTERACTIONS WITH PATIENT. GRANDIOSE DELUSIONS VOICED TO STAFF THAT HE IS "GOING TO CALL ME LAN MANAGER AND GET THIS HANDLED" WHEN STAFF REORIETS PATIENT. DENIES ANY HALLUCINATIONS AND NONE ARE NOTED. DENIES ANY SI/HI, PLAN, OR INTENT. HAS BEEN OUT IN THE DAY ROOM MOST OF THE SHIFT. NAPS INTERMITTENTLY THROUGHOUT THE DAY. APPETITE GOOD FOR MEALS, TAKING FLUIDS WELL. MEDICATION COMPLIANT WITHOUT DIFFICULTY. PATIENT STRONGLY ENCOURAGE TO SHOWER THIS SHIFT AND EDUCATED ABOUT HYGIENE DUE REFUSAL OF SHOWERS. PT AGGREED AND SHOWERED AND SHAVED THIS SHIFT WITH STAND BY AND QUEING FROM STAFF. SEE [facility] FLOWSHEET FOR SPECIFIC MONITORING.
--- NOTE | 2017-02-28 15:47 | NUR ---
PATIENT HAS BEEN NON COMPLIANT WITH FALL PRECAUTION POLICIES. HAS BEEN NOTED TO TAKE OFF BODY ALARM THROUGHOUT THE DAY. FALL RISK EDUCATION COMPLETED ALL THROUGHOUT THE SHIFT WITH MINIMAL EFFECT FOR SHORT PERIODS OF TIME. WILL CONTINUE Q15 MIN OBSERVATION CHECKS. REORIENT PATIENT FREQUENTLY AND PRN. ENCOURAGE TO ATTEND AND PARTICIPATE IN GROUP THERAPY.
[2017-02-28 20:05] VITALS: BP 114/69
--- NOTE | 2017-03-01 02:26 | NUR ---
24 HR chart check completed.
--- NOTE | 2017-03-01 05:27 | NUR ---
PT CONTINUES WITH GRANDIOUS DELUSIONS, STATING HE KNOWS THE COUNTER SUPERVISOR FOR THE BULDING AND THAT THE SHOWER IN HIS ROOM WAS MEANT FOR A TWIN SIZE BED AND THAT THE HAND RAILS ARE MISPLACED NOW. PT NON COMPLIANT WITH FALL PRECAUTIONS FREQUENTLY REMOVING BED AND BODY ALARM AND AMBULATING UNSTEADY BY HIS SELF. PT ASKED WHY HE HAS TO HAVE ALAMS ON AND STATED "BUT THAT WAS OVER 2 WEEEKS AGO". PT REDIRECTED IN REST ROOM ATTEMPTING TO URINATE IN SHOWER AND IN CORNER BY COMMODE. PT CALLED FRIEND AND STATED THAT HE HAS GAINED OVER 30 LBS SINCE HE HAS BEEN HERE AND THAT IT IS INSTIUTIONAL FOOD WITH NO GREEN VEGATABLES OF ANY KIND WITH EXCEPTION OF LETTUCE ON A HAMBURGER. REPORTED PT ON PREVIOUS SHIFTS HAD TRIED TO ORDER 3 PIES AND 4 ICE CREAMS WITH SUPPER. MUST BE SUPERVISED WHEN ORDERING MEALS. LESS DEMANDING THAN ON PREVIOUS SHIFTS. MAKING STATEMENTS THAT COURT PAPERS WERE LEFT IN HIS DRAWER WITH NO KNOWLEDGE OF COURT. PREVIOUS NOTES INDICATE THAT COURT PAPERS WERE GIVEN AND EXPLAINED TO BY TRINY, RN AND ADULT OFFICE ON THE AGEING FOR EMERGENCY GUARDIANSHIP WITH [facility]. PT SLEPT INTERMITTENTLY AWAKING CONFUSED AND HAVING TO URINATE. WANTING TO GET READY FOR BREAKFAST AT 0230. PT EASILY REDIRECTED AND RETURNED TO BED. PT MED COMPLIANT WITH OUT DIFFICULTY. SLEPT 7 HOURS INTURRUPTED
--- NOTE | 2017-03-01 07:41 | NUR ---
Grayson exhibits some irritability this morning and has voiced some paranoid ideas regarding staff. Not receptive to reality orientation @ this time. Refusing to allow staff to take vital signs. Dr. Collins in to see him.
--- NOTE | 2017-03-01 08:03 | NUR ---
Afternoon 02/28/17 Quarter Cornhole Puzzle and Conversation Patient did not attend group. Patient was upset because he wanted to watch the [employer] News. Expalained to patient that he could not watch TV during group patient was upset and went to his room. Patient came back about 15 minutes later saying it was unfair that he could not watch TV since another patient and I were working on a puzzle. Invited Patient to join us but he became agitated. A nurse stepped in and tried to explain to patient that news cant bother some patients and it wasnt time for TV. Patient was somewhat argumentative and then went to his room
[2017-03-01 08:39] VITALS: BP 110/70
[2017-03-01] MEDS ORDERED: VITAMIN D50000 UNIT PO (09:23)
--- NOTE | 2017-03-01 09:25 | NUR ---
PHYSICAL THERAPY Patient seen this am 1:1 for therapy and was sitting at breakfast table in w/c upon therapist arrival. Patient was initially pleasant, carrying on a normal conversation, but shortly afterwards during gait ex while pushing his w/c, 300'x 1, CGA, patient began to demonstrate impulsive behavior by unexpectedly started to run / walk around the w/c. Patient redirected with both verbal and tactile arm cue and resumed pushing w/c again up hallway to window area. When asked why he decided to do this, patient responded with "that's what I do to the staff here". Patient returned to his w/c following gait with mild SOB and soon began inappropriate conversation with sexual content. Therapist instructed patient this was unacceptable language and inappropriate conversation and he soon stopped by changing the subject once again. Patient completed treatment at this time as floor nurse arrived to check vitals. Patient remained in his w/c with body alarm activated for safety under nursing Supervison. Will continue per POC as tolerated. Elias Cabral PTA
--- NOTE | 2017-03-01 09:32 | NUR ---
PATIENT SEEN 1:1 OT THIS DATE 25 MINUETS. PATIENT IDENTIFIED BY NAME AND DATE OF . PATIENT COMPLETED STAND PIVOT TRANSFER W/C TO BED CGA WITH NO INITIATION LOCK BRAKES AND REQUIRED VERBAL CUES SAFETY. PATIENT COMPLETED BUE AROM SEATED EOB WITH GOOD SIT BALANCE ALL PLANES X 20 REPS WITH NO C/O PAIN AND MOD VERBAL CUES MAINTIAN ATTENTIION TO TASK AND REDIRECTION. PATIENT COMPLETED GROOMING COMB HAIR STANDING CGA WITH NO LOSS BALANCE. COMPELTED TOILETING TASK SBA WITH PATIENT REQUIRING VEBRAL CUES SAFETY SECONDARY DECREASE SAFETY AWARENESS. PATIENT COMPLETED LB DRESSING DOFF/MARTINEZ NONSLIP SOCKS SBA SEATED EOB. PATIENT REQUESTED TO LIE DOWN AFTER SESSION WITH PATIENT IN BED AND BED ALARM IN TACT. JUNE POLLOCK/Brian
[2017-03-01] MEDS ORDERED: RISPERDAL1 M1 PO (10:52)
[2017-03-01] MEDS ORDERED: RISPERDAL2 M1 PO (10:52)
[2017-03-01] MEDS ORDERED: REMERON15 M2 PO (10:54)
[2017-03-01] MEDS ORDERED: DEPAKOTE500 M1 PO (10:56)
[2017-03-01] MEDS ORDERED: NAMENDA10 MG PO (11:00)
[2017-03-01] MEDS ORDERED: EXEL13.31 PO (11:02)
--- NOTE | 2017-03-01 11:40 | NUR ---
SONNY offerred grp. to pt. pt. lyng in bed and states "I was already up, I am not getting up again". Sonny offerred to talk with pt. about his refusal to get out of bed and he said "I just am tired".
--- NOTE | 2017-03-01 11:51 | NUR ---
SW notified CM of [facility], Louise Deng, who states she will be down before d/c to [facility] pt. with [place] paperwork from court this morning.
--- NOTE | 2017-03-01 12:39 | NUR ---
Goals,Exercise,Fun Facts... Patient did not attend group this morning. Patient was in bed. When this AC encourage patient to join group patient stated " You can take your corn hole and group and put them wherever you want. I'm not coming." Patient did not attend group
--- NOTE | 2017-03-01 13:24 | NUR ---
pt d/c'ed to [facility] via [facility] ambulance service thru [facility] coordination/transportation dept. SW todeepa pt. would be [facility] via wheelchair at 2:18pm. Sonny left vm for [employer] Waferconi Castrejon, APS worker, carla Garcia and CM from [facility] Fady Metzger. Kobe dunn from [facility], CM already spoken with.
--- NOTE | 2017-03-01 13:26 | NUR ---
TRINY faxed pasrr approval and origirnal form to moe at [facility]. [facility] showed up at 1>21 pm to transport pt. to [facility], Nurse got pt. belongings gathered up quickly and TRINY notified Louise Deng Cm that they were here to transport pt. to [facility] early and the phone cut out,. so Triny text message to Louise so that she would go to [facility] to give pt. Guardianship paperwork to pt there.
--- NOTE | 2017-03-01 13:35 | NUR ---
[facility] not [facility] from last note.
--- NOTE | 2017-03-01 13:50 | NUR ---
Grayson is compliant with medications. On 1:1 interaction he continues to voice delusions that are grandiose and paranoid in nature. Not receptive to reality orientation when this is presented. No agitation has been noted. Requires some redirection to focus on topic of discussion @ times. Fall precautions maintained and he has utilized the wheelchair to transport himself about the unit. He was noted to nap approximately one hour mid morning, but for the most part his energy level is appropriate to age and condition. Appetite is good. Plans made to discharge Grayson today. Dr. Collins was notified and orders were received. Grayson will be continuing his treatment @ [facility] per manager social services. He continues to have limited insight into his current issues. Verbal report provided to receiving RN, Hanane, @ [facility]. Refer to disposition for specific discharge medications and follow up which were also reviewed with receiving RN. Grayson did leave this facility discharged on this date @ approximately 1:20 pm. Prior to his departure all personal belongings were returned to him. He is being transported via ambulance accompanied by ambulance personnel.
--- NOTE | 2017-03-01 14:28 | NUR ---
PHYSICAL THERAPY CO-SIGN I approve of the Phyical Therapy notes written above. ARIANA CATALAN PT
--- NOTE | 2017-03-02 07:30 | NUR ---
OCCUPATIONAL THERAPY CO-SIGN I approve of the Occupational Therapy notes written above. FATIMAH BELL OTR/Brian
== END 2017-03-01 13:30 | disposition other institution (70) | DRG 885 ==
LOC: 3N 11:56
PROVIDERS: Family Medicine; ADMIT Psychiatry & Neurology Psychiatry
DX: F33.3 Major depressive disorder, recurrent, severe with psychotic symptoms (principal); G40.919 Epilepsy, unspecified, intractable, without status epilepticus; E87.1 Hypo-osmolality and hyponatremia; E83.41 Hypermagnesemia; R74.0 Nonspecific elevation of levels of transaminase and lactic acid dehydrogenase [LDH]; M25.512 Pain in left shoulder; R31.9 Hematuria, unspecified; B19.20 Unspecified viral hepatitis C without hepatic coma; G89.29 Other chronic pain; R62.7 Adult failure to thrive; M54.30 Sciatica, unspecified side; I73.9 Peripheral vascular disease, unspecified; G62.9 Polyneuropathy, unspecified; F41.9 Anxiety disorder, unspecified; E78.5 Hyperlipidemia, unspecified; F17.210 Nicotine dependence, cigarettes, uncomplicated; Z98.49 Cataract extraction status, unspecified eye; Z89.011 Acquired absence of right thumb; Z90.49 Acquired absence of other specified parts of digestive tract; Z83.3 Family history of diabetes mellitus; Z88.5 Allergy status to narcotic agent; Z88.0 Allergy status to penicillin; Z79.891 Long term (current) use of opiate analgesic; Z79.899 Other long term (current) drug therapy

== ENCOUNTER 2017-04-29 14:13 | Inpatient (IN) | payer OTHER ==
[~2017-04-29] VITALS: Ht 171.4 cm; Wt 74.5 kg
--- NOTE | ~2017-04-29 | PR ---
[place], [place] PROGRESS NOTE [facility] [id number] UNIT #: [id number] ROOM: 312 DOCTOR: DENI WOOD MD BIRTHDATE: [birth year] DOS: 05/01/2017 CHIEF COMPLAINT: "The food is cold. Nothing is good here." SUMMARY OF THE VISIT: The patient was interviewed as he was sitting, eating his breakfast. He had about 1/2-2/3 of his breakfast consumed. He reported that the food was cold and he did not want anymore. He seemed rather negative and on edge and irritable. Nurses report that they have found him to be increasingly confused and in fact found him squatting in the corner of his room about to urinate or defecate on the floor, they did quickly redirect him and assist him to the restroom. The patient has had episodic confusion before and I do question whether he was compliant with his medications when at the retirement and therefore missed significant doses of his Namenda and Exelon. His valproic acid is subtherapeutic at 21.5. MENTAL STATUS: He is alert and oriented to person, possibly place, but not time. Mood still seems labile. Affect is inappropriate. There are no symptoms of zak or hypomania. He is somewhat paranoid and bizarre. Memory has gaps. PLAN: He did receive his initial loading dose of Invega Sustenna of 234 mg IM yesterday. I will order him his secondary loading dose of Invega Sustenna 156 mg on 05/06/2017. We will recheck a valproic acid level here in a couple of days to see if the level is moving up into a therapeutic range, engage him in individual and lamb milieu activity, returning to the least restrictive environment when psychiatrically stable. DENI WOOD MD CM:PNTRANS [id number] DENI WOOD MD 05/01/17 1451 interface
--- NOTE | ~2017-04-29 | PR ---
[place], [place] PROGRESS NOTE NAME: JOSE L VICENTE UNIT #: [id number] ROOM: 312 DOCTOR: DENI WOOD MD BIRTHDATE: [birth year] DOS: 05/04/2017 CHIEF COMPLAINT: "I am feeling better, but she took my pain meds away, didn't she?" SUMMARY OF THE VISIT: The patient was interviewed in the dining area where he was sitting eating breakfast. He did engage readily in conversation. He exhibited spontaneity and was able to respond appropriately. He did appear much better and seemed calmer. He was rather upset at some level that his pain meds were discontinued, but I redirected him as far as his past history of polysubstance abuse including opioid abuse and that there were other means of pain control that we could utilize to assist him being comfortable. From a psychiatric standpoint, he seems to be improving day by day. MENTAL STATUS: He is alert and oriented with time gaps. Mood does seem to be more euthymic. Affect is more appropriate. There is no zak or hypomania. There are no overt auditory or visual hallucinations. No delusions or paranoia. Short-term memory has gaps. PLAN: His valproic acid level obtained yesterday at 3:00 p.m. was slightly high at 104.1. I have already adjusted the Depakote ER down from 2000 mg at bedtime to 1500 mg at bedtime. We will continue to engage in individual and lamb milieu activity with the plan then to discharge to [place] [id number] or a similar facility when stable. DENI WOOD MD CM:PNTRANS [phone] DENI WOOD MD 05/04/17 0855 interface
--- NOTE | ~2017-04-29 | PR ---
[place], [place] PROGRESS NOTE [id number] UNIT #: [id number] ROOM: 312 DOCTOR: DENI WOOD MD BIRTHDATE: [birth year] DOS: 05/02/2017 CHIEF COMPLAINT: "Morning." SUMMARY OF THE VISIT: The patient was interviewed as he was resting in bed. He awoke briefly and said good morning. He smiled and then he closed his eyes and went back to sleep. Nurses report that he has been under more control since the Invega Sustenna was started and reloaded. He does seem to be more compliant and less labile. He is also happy that he received his oxycodone and states that the pain is much better. MENTAL STATUS: He is alert and oriented with time gaps. Mood does seem to be trending towards euthymia. Affect is more appropriate. There is no hypomania or zak. There are no auditory or visual hallucinations. No delusions, no paranoia. Short term memory has gaps, otherwise he is intact. PLAN: I will maintain the current psychotropic regimen, engage in individual and lamb milieu activity, returning to the least restrictive environment when psychiatrically stable. DENI WOOD MD CM:PNTRANS [id number] DENI WOOD MD 05/03/17 0040 interface
--- NOTE | ~2017-04-29 | PR ---
[place], [place] PROGRESS NOTE NAME: JOSE L VICENTE [facility] #: [id number] UNIT #: [id number] ROOM: 312 DOCTOR: Abeba HIDALGO,WILMER BIRTHDATE: [birth year] DOS: 05/09/2017 PSYCHIATRIC PROGRESS NOTE SUBJECTIVE: Patient seen and spoke with the staff. Per staff, patient is taking his medication, doing fine, ambulating now. No behavioral problems or issues. Med compliant. Patient was pleasant, cooperative. He was in the bed. When I asked him how he is doing, he said "okay," then he said that it is the same, but different day. He denied any auditory or visual hallucinations. He reported good sleep and appetite. MENTAL STATUS EXAMINATION: Pleasant, cooperative. Described his mood as "good." Affect, mood congruent. Thought process, goal directed. No flight of ideas, loosening of association. He denied auditory or visual hallucination. No delusion or paranoia noted. He denied suicidal ideation, intent or plan. He also denied any homicidal ideation, intent or plan. ASSESSMENT: Schizoaffective disorder. PLAN: 1. Continue current medication and care. 2. Continue redirection. 3. Final medication management and discharge plan by the regular team. WILMER HIDALGO MD CM:PNTRANS [id number] [phone] Abeba HIDALGO 05/10/17 0154 interface
--- NOTE | ~2017-04-29 | DS ---
[place], [place] DISCHARGE SUMMARY [id number] UNIT #: [id number] ROOM: 312 DOCTOR: DENI WOOD MD BIRTHDATE: [birth year] DOS: 05/07/2017 CHIEF COMPLAINT: "Oh, please do not send me back to that place. It is the hell hole." HISTORY OF PRESENT ILLNESS: This is a 62-year-old white male known to me from a previous psychiatric admission to the [facility] as well as his recent stay at [facility]. The patient had become increasingly depressed and despondent after being transferred to the [facility] in [place]. Once there, he began to refuse all of his medications stating that he would rather than stay there. He has been threatening suicide and was planning also to hang himself. The patient has become increasingly more belligerent there with staff and became threatening. He has a lengthy history of bipolar disorder as well as a traumatic brain injury and has a tendency to become very labile when noncompliant with his meds. He is admitted now to restabilize on his medication, to engage in individual and lamb milieu activity with the plan to return to the least restrictive environment when psychiatrically stable. PAST MEDICAL HISTORY: Remarkable for chronic back pain, chronic prescription use of opiates, major depression, hepatitis C, hyperlipidemia, neuropathy, peripheral vascular disease, sciatica, seizure disorder and nicotine dependence. SUMMARY OF HOSPITAL COURSE: The patient was admitted to the unit where he was started briefly on Risperdal. He tolerated this well and this was very quickly then changed to Invega Sustenna 234 mg IM and then he did receive a secondary loading dose of 156 mg. He does extremely well with the Invega and with the Invega on board, his mood did stabilize very quickly. Depakote was utilized not only for seizures, but also to help stabilize mood further. He was restarted and rapidly titrated up on both the rivastigmine and Namenda and Remeron 15 mg at bedtime was utilized for the depressive component. Sleep and appetite normalized. He became very compliant on the unit. We did talk at length about his preference and he did report he would rather go back to [facility] or a similar long-term care facility, then to return back to the [place] [facility]. His PASR did come through, and we were able to discharge to [facility]. MENTAL STATUS AT DISCHARGE: The patient is alert and oriented with time gaps. Mood was strongly trending towards euthymia. Affect was much more appropriate. There were no symptoms of zak or hypomania. There were no overt auditory or visual hallucinations. No delusions, no paranoia. Short-term memory had gaps, otherwise he was intact. 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 PLAN: All of his prescriptions have been printed and will be sent with him to [facility]. I will follow him upon his admission there. [place], [place] DISCHARGE SUMMARY NAME: JOSE L VICENTE UNIT #: [id number] ROOM: 312 DOCTOR: DENI WOOD MD BIRTHDATE: [birth year] DENI WOOD MD CM:DISCHARG [id number] DENI WOOD MD 05/07/17 1011 interface
--- NOTE | ~2017-04-29 | DS ---
[place], [place] DISCHARGE SUMMARY NAME: JOSE L VICENTE UNIT #: [id number] ROOM: 312 DOCTOR: DENI WOOD MD BIRTHDATE: [birth year] DOS: 05/11/2017 ADDENDUM CHIEF COMPLAINT: "I am ready to go." SUMMARY OF THE VISIT: The patient was interviewed in the dining area. He reports frustration over not being discharged yesterday. A discussion with the treatment team indicates that [facility] who was going to take the patient at the last moment stated that they could not meet his needs effectively. We are now in the process of exploring other placement options and have referrals out to multiple agencies. MENTAL STATUS EXAM: Fairly euthymic at the present time. DIAGNOSES: As per the discharge summary dictated yesterday. DISPOSITION: Will be to a long-term care facility where I will most likely follow. DENI WOOD MD CM:JUAN 7 DENI WOOD MD 05/11/1738 interface
--- NOTE | ~2017-04-29 | WRIGHTHP ---
[place], [place] PATIENT HISTORY AND PHYSICAL EXAM NAME[id number] UNIT #: [id number] ROOM: 312 DOCTOR: DENI WOOD MD BIRTHDATE: [birth year] DOS: 04/30/2017 CHIEF COMPLAINT: "Oh, please don't send me back to that place. It is the hell hole." HISTORY OF PRESENT ILLNESS: This is a 62-year-old white male known to me from previous psychiatric admission here to the [facility] as well as a recent stay at [facility]. The patient had become increasingly depressed after he was transferred to [facility] in [place]. Once there, he began refusing all of his medications, stating that he would just rather and stating that the medicines themselves do not help anyways. He was threatening suicide and was going to hang himself. The patient became increasingly more belligerent with staff and more threatening. Because of his history of bipolar disorder as well as a traumatic brain injury with mood lability, it was felt that an inpatient stay was warranted at this time. PAST MEDICAL HISTORY: Remarkable for chronic back pain, chronic prescription use of opiates, major depression, hepatitis C, hyperlipidemia, neuropathy, peripheral vascular disease, sciatica, seizure disorder, nicotine dependence. MENTAL STATUS: The patient is alert and oriented with time gaps. Mood seems overwhelmingly depressed. Affect is flat and blunted. He is also quite anxious, especially when discussing the jail and he recounts multiple issues about it that he finds displeasurable. He was not grossly psychotic at this point, although he does have a history of psychotic symptomatology. There is no zak or hypomania. Memory has gaps especially for short term. DIAGNOSIS: Bipolar type 1, depressed. PLAN: I will go ahead and discontinue his Risperdal. He has tolerated Risperdal well in the current and in the past. I will start him on Invega Sustenna 234 mg IM now to improve compliance. I will check a Depakote level at 3:00 p.m. this afternoon. We will engage in individual and lamb milieu activity. I did discuss the case at length with the treatment team and social work professor and discussed his displeasure with the jail. He did not express similar complaints regarding [facility]. We will look into the possibility of replacing him at [place] if possible and perhaps making this a long-term placement. We will discharge then when psychiatrically stable. [place], [place] PATIENT HISTORY AND PHYSICAL EXAM NAME: JOSE L VICENTE UNIT #: [id number] ROOM: [facility] DOCTOR: DENI WOOD MD BIRTHDATE: [birth year] DENI WOOD MD CM:HISPHYS:PATIENT HISTORY AND PHYSICAL EXAMINATION 4 9 DENI WOOD MD 04/30/1729 interface
--- NOTE | ~2017-04-29 | DS ---
[place], [place] DISCHARGE SUMMARY NAME: JOSE L VICENTE [facility] #: [id number] UNIT #: [id number] ROOM: 312 DOCTOR: DENI COLLINS MD BIRTHDATE: [birth year] DOS: 05/12/2017 ADDENDUM. CHIEF COMPLAINT: "Will I be able to go today, Dr. Collins." SUMMARY OF THE VISIT: The patient was interviewed in the dining area. He was very pleasant and engaging, frustrated that he has not been able to leave, uncertain why no correction would take him as he feels like he is not a behavioral issue and I tend to agree with him. He has been pleasant and cooperative. He has been compliant with his medicine. He has not been agitated or aggressive. His symptoms have been fully under control with the medicine. He is not exhibiting extrapyramidal symptoms, tardive dyskinesia or any other adverse events. MENTAL STATUS AT DISCHARGE: He is alert and oriented. He is euthymic. There is no hypomania or zak. There is no psychosis. Memory for the most part is intact except for some mild short term issues. DIAGNOSIS: As per the previous discharge summaries. DISPOSITION: At this point in time, the patient is to go to [facility] in [place], [place]. His prescriptions will be sent with him. I will follow him upon his admission there. DENI COLLINS MD CM:DISCHARG 0930 [id number] DENI COLLINS MD 05/12/17 1346 interface
--- NOTE | ~2017-04-29 | DS ---
[place], [place] DISCHARGE SUMMARY NAME: JOSE L VICENTE UNIT #: [id number] ROOM: 312 DOCTOR: DENI WOOD MD BIRTHDATE: [birth year] DOS: 05/10/2017 ADDENDUM CHIEF COMPLAINT: "I need to get out of here, I thought I was leaving Wednesday." SUMMARY OF THE VISIT: The patient was interviewed first in the taylor and then later he accompanied me to the dining area to sit and talk. He is upset because his brother told him that his property was going to be foreclosed upon and demolished. He is worried about what he can do about this. He was also upset that he did not leave Wednesday. We talked about the whole issue with the PASSAR and also with facilities not getting back to us as to whether or not they would accept him. We are going to push today to get him out of here today and I will discuss this case further with [employer] regarding his property. MENTAL STATUS AT DISCHARGE: Today, the patient is alert and oriented with some mild time gaps. Mood does seem to be dramatically improved. He is much brighter and more goal directed in his thinking. There are no auditory or visual hallucinations. No zak, no psychosis. Short term memory has gaps, otherwise he is intact. DIAGNOSIS AND DISPOSITION: As per the previous discharge summary dictated on the . DENI WOOD MD CM:DISCHARG 0921 [id number] DENI WOOD MD 05/10/17 1307 interface
--- NOTE | ~2017-04-29 | PR ---
[place], [place] PROGRESS NOTE [id number] UNIT #: [id number] ROOM: 312 DOCTOR: DENI COLLINS MD BIRTHDATE: [birth year] DOS: 05/03/2017 CHIEF COMPLAINT: "I am feeling better, but please do not send me back to that [facility]." SUMMARY OF THE VISIT: The patient was interviewed in the dining area after he was wheeled into his spot to eat. He looked at me, waved and said "Good morning, Dr. Collins." He engaged readily in conversation, reporting that he does feel better since he has been here. He once again though reiterated that he does not want to go back to that [facility]. When given the option of returning to the [facility]pc or going back to [facility], his initial response was he would rather go to [facility]. He later did ask me if there were any other options and I did state that I would discuss this with manager social responsibility and have them talk to him as well. Of note, the patient does seem to be improving. He does have some mild tardive dyskinesia of his lower lip. No other side effects are evident. MENTAL STATUS: He is alert and oriented with time gaps. Mood does seem to be strongly trending towards euthymia. Affect is much more appropriate. There are no symptoms of zak or hypomania. There are no overt auditory or visual hallucinations. No delusions were voiced. No paranoia is present. Short term memory has gaps, otherwise he is intact. PLAN: I will recheck the valproic acid level today at 1500 hours to see if it is more therapeutic given the recent adjustment. I will start him on vitamin E 400 International Units in the morning to see if this helps reverse the tardive dyskinesia. We will discuss the case with treatment team and explore possible placement options. Engage in individual and lamb milieu activity, returning to the least restrictive environment when psychiatrically stable. DENI COLLINS MD CM:PNTRANS 0832 DENI COLLINS MD 05/03/1750 interface
--- NOTE | ~2017-04-29 | PR ---
[place], [place] PROGRESS NOTE NAME: [facility] L VIC[facility]E [facility] #: [id number] UNIT #: [id number] ROOM: 312 DOCTOR: Abeba HIDALGO,WILMER BIRTHDATE: [birth year] DOS: 05/08/2017 SUBJECTIVE: The patient seen and spoke with the staff. Per staff, the patient is doing good. No behavioral problems or issues. Medication compliant. Easily redirectable. The patient was pleasant and cooperative. He was on his bed. Reports doing well. When I asked him that why he is in the bed, not in the day area, he said that he feels comfortable in bed. He reports good sleep and appetite. He denied any side effect from the medication. MENTAL STATUS EXAMINATION: The patient was pleasant, cooperative. Described his mood as "good." Affect, mood congruent. Thought process goal directed. No flight of ideas, loosening of association. Denied auditory or visual hallucination. No delusion or paranoia noted. He denied suicidal ideation, intent or plan. He also denied homicidal ideation, intent or plan. ASSESSMENT: Schizoaffective disorder. PLAN: 1. Continue current medication and care. 2. Continue redirection. 3. Supportive care. WILMER HIDALGO MD CM:PNTRANS 1824 Abeba HIDALGO 05/08/17 2306 interface
[2017-04-29 14:13] VITALS: BP 101/63
[~2017-04-29 14:13] MED LIST changes: +EXEL13.31 PO; +NAMENDA10 MG PO; +REMERON15 M2 PO; +RISPERDAL1 M1 PO; +RISPERDAL2 M1 PO; +VITAMIN D50000 UNIT PO
[2017-04-29] MEDS ORDERED: RISPERDAL1 M1 PO (14:35)
[2017-04-29] MEDS ORDERED: DIVALPROEX SOD500 M1 PO (14:38)
[2017-04-29] MEDS ORDERED: RIVASTIGMINE1 EAC1 T (14:39)
[2017-04-29] MEDS ORDERED: VITAMIN C500 M4 PO (14:39)
[2017-04-29 14:50] LABS: BASO % 0.4 % (0.0-1.0); EOS # 0.2 10*3/uL (0.0-0.4); EOS % 3.2 % (1.0-4.0); HEMATOCRIT 42.1 % (42.0-52.0); HEMOGLOBIN 14.4 g/dl (14.0-18.0); LYMPH # 1.3 10*3/uL (1.3-4.4); LYMPH % 26.6 % (27.0-41.0); MEAN CELL VOLUME 92.7 fl (80.0-94.0); MEAN CORPUSCULAR HGB 31.7 pg (27.0-31.0); MEAN CORPUSCULAR HGB CONC 34.2 g/dl (33.0-37.0); MEAN PLATELET VOLUME 9.3 fl (9.6-12.3); MONO # 0.7 10*3/uL (0.1-1.0); MONO % 14.9 % (3.0-9.0); NEUT # 2.7 10*3/uL (2.3-7.9); NEUT % 54.1 % (47.0-73.0); PLATELET COUNT AUTOMATED 88 10*3/uL (130-400); RED BLOOD COUNT 4.54 10*6/uL (4.50-5.90); RED CELL DISTRI WIDTH 13.1 % (0-14.5)
[2017-04-29 15:04] LABS: ALBUMIN 2.9 gm/dl (3.1-4.5); ALKALINE PHOSPHATASE 35 U/L (45-117); BUN 16 mg/dl (7-24); CHLORIDE 105 mmol/L (98-107); CREATININE 0.83 mg/dL (0.70-1.30); POTASSIUM 3.7 mmol/L (3.5-5.1); SGOT/AST 52 IU/L (3-35); SGPT/ALT 44 U/L (12-78); SODIUM 142 mmol/L (136-145); TOTAL PROTEIN 6.5 gm/dL (6.4-8.2)
[2017-04-29 15:06] LABS: ETHYL ALCOHOL < 3.0 mg/dl (<3)
[2017-04-29 15:07] LABS: ACETAMINOPHEN (TYLENOL) < 2.0 ug/ml (10-30)
[2017-04-29 15:15] LABS: BILIRUBIN 1+ (NEGATIVE); BLOOD 2+ (NEGATIVE); CLARITY SL CLOUDY (CLEAR); COLOR YELLOW (YELLOW); GLUCOSE NEGATIVE (NEGATIVE); KETONE 1+ (NEGATIVE); LEUKO ESTERASE NEGATIVE (NEGATIVE); NITRITE NEGATIVE (NEGATIVE); SPECIFIC GRAVITY 1.025 (1.005-1.030); URINE AMPHETAMINES < 1000 (1000ng/ml); URINE BARBITURATES < 200 (200ng/ml); URINE BENZODIAZEPINES < 200 (200ng/ml); URINE CANNABINOIDS (THC) < 50 (50ng/ml); URINE COCAINE < 300 (300ng/ml); URINE METHADONE < 300 (300ng/ml); URINE OPIATES < 300 (300ng/ml)
[2017-04-29 15:16] LABS: URINE PHENCYCLIDINE < 25 (25ng/ml)
[2017-04-29 15:21] LABS: BACTERIA TRACE; MUCOUS 2+
[2017-04-29 15:22] LABS: RBC 41-50 rbc/hpf (0-2)
[2017-04-29 16:17] VITALS: BP 103/84
[2017-04-29 18:28] VITALS: BP 108/73
[2017-04-29 20:09] VITALS: BP 117/77
[2017-04-29 20:50] VITALS: BP 117/77
[2017-04-29] MEDS ORDERED: EXELON1 EACH T (21:07)
[2017-04-30 05:46] LABS: BASO # 0.1 10*3/uL (0.0-0.1); BASO % 1.3 % (0.0-1.0); EOS # 0.4 10*3/uL (0.0-0.4); EOS % 7.5 % (1.0-4.0); HEMATOCRIT 39.7 % (42.0-52.0); HEMOGLOBIN 13.6 g/dl (14.0-18.0); LYMPH # 1.8 10*3/uL (1.3-4.4); MEAN CELL VOLUME 93.6 fl (80.0-94.0); MEAN CORPUSCULAR HGB 32.1 pg (27.0-31.0); MEAN CORPUSCULAR HGB CONC 34.3 g/dl (33.0-37.0); MEAN PLATELET VOLUME 9.6 fl (9.6-12.3); MONO # 0.9 10*3/uL (0.1-1.0); MONO % 18.6 % (3.0-9.0); NEUT # 1.6 10*3/uL (2.3-7.9); NEUT % 33.3 % (47.0-73.0); PLATELET COUNT AUTOMATED 91 10*3/uL (130-400); RED BLOOD COUNT 4.24 10*6/uL (4.50-5.90); RED CELL DISTRI WIDTH 12.9 % (0-14.5); WHITE BLOOD COUNT 4.7 10*3/uL (4.8-10.8)
[2017-04-30 05:49] LABS: ALBUMIN 2.6 gm/dl (3.1-4.5); ALKALINE PHOSPHATASE 52 U/L (45-117); BUN 19 mg/dl (7-24); CHLORIDE 106 mmol/L (98-107); CHOLESTEROL 100 mg/dL (<200); CREATININE 0.77 mg/dL (0.70-1.30); HDL CHOLESTEROL 38 mg/dl (40-60); LDL CHOLESTEROL 39 mg/dL (9-159); POTASSIUM 3.5 mmol/L (3.5-5.1); SGOT/AST 40 IU/L (3-35); SGPT/ALT 38 U/L (12-78); SODIUM 142 mmol/L (136-145); TOTAL PROTEIN 5.8 gm/dL (6.4-8.2); TRIGLYCERIDES 113 mg/dl (<150); VLDL CHOLESTEROL 23 mg/dL (6-40)
[2017-04-30 05:59] LABS: VALPROIC ACID (DEPAKENE) 31.1 ug/ml (50-100)
[2017-04-30 07:57] VITALS: BP 100/74
[2017-04-30 20:00] VITALS: BP 111/70
[2017-05-01 07:58] VITALS: BP 113/76
[2017-05-01 20:10] VITALS: BP 118/75
[2017-05-02 08:02] VITALS: BP 112/78
[2017-05-02 20:00] VITALS: BP 100/66
[2017-05-03 08:03] VITALS: BP 120/77
[2017-05-03 19:54] VITALS: BP 119/70
[2017-05-04 08:45] VITALS: BP 134/66
[2017-05-04 20:00] VITALS: BP 130/89
[2017-05-05 07:49] VITALS: BP 117/65
[2017-05-05 20:00] VITALS: BP 104/74
[2017-05-06 07:57] VITALS: BP 117/79
[2017-05-06 20:00] VITALS: BP 127/73
[2017-05-06 20:29] VITALS: BP 127/73
[2017-05-07 07:38] LABS: BASO % 0.5 % (0.0-1.0); EOS # 0.7 10*3/uL (0.0-0.4); EOS % 10.1 % (1.0-4.0); HEMATOCRIT 41.4 % (42.0-52.0); HEMOGLOBIN 14.2 g/dl (14.0-18.0); LYMPH # 1.8 10*3/uL (1.3-4.4); LYMPH % 24.8 % (27.0-41.0); MEAN CELL VOLUME 94.5 fl (80.0-94.0); MEAN CORPUSCULAR HGB 32.4 pg (27.0-31.0); MEAN CORPUSCULAR HGB CONC 34.3 g/dl (33.0-37.0); MEAN PLATELET VOLUME 9.3 fl (9.6-12.3); MONO # 0.9 10*3/uL (0.1-1.0); MONO % 12.4 % (3.0-9.0); NEUT # 3.7 10*3/uL (2.3-7.9); NEUT % 50.8 % (47.0-73.0); PLATELET COUNT AUTOMATED 193 10*3/uL (130-400); RED BLOOD COUNT 4.38 10*6/uL (4.50-5.90); RED CELL DISTRI WIDTH 13.2 % (0-14.5); WHITE BLOOD COUNT 7.4 10*3/uL (4.8-10.8)
[2017-05-07 08:00] VITALS: BP 115/70
[2017-05-07 08:01] LABS: BUN 19 mg/dl (7-24); CHLORIDE 103 mmol/L (98-107); CREATININE 0.78 mg/dL (0.70-1.30); POTASSIUM 4.3 mmol/L (3.5-5.1); SODIUM 140 mmol/L (136-145)
[2017-05-07] MEDS ORDERED: MEMANTINE HCL10 MG PO (09:04)
[2017-05-07] MEDS ORDERED: MIRTAZAPINE15 M2 PO (09:04)
[2017-05-07] MEDS ORDERED: BENZTROPINE MESY1 MG PO (09:04)
[2017-05-07] MEDS ORDERED: DIVALPROEX SOD500 MG PO (09:04)
[2017-05-07] MEDS ORDERED: INVEGA SUSTENN156 MG IM (09:04)
[2017-05-07] MEDS ORDERED: EXELON13.3 MG/21 T (09:04)
[2017-05-07 20:20] VITALS: BP 108/66
[2017-05-08 08:00] VITALS: BP 112/68
[2017-05-08 20:21] VITALS: BP 103/62
[2017-05-09 07:55] VITALS: BP 112/64
[2017-05-09 09:58] VITALS: BP 112/64
[2017-05-09 20:10] VITALS: BP 110/76
[2017-05-10 08:07] VITALS: BP 110/64
[2017-05-10 19:45] VITALS: BP 106/64
[2017-05-11 08:01] VITALS: BP 112/68
[2017-05-11 20:00] VITALS: BP 112/63
[2017-05-12 07:36] VITALS: BP 137/84
== END 2017-05-12 20:49 | disposition other institution (70) | DRG 884 ==
LOC: ED 14:13 → EDHOLD 15:35 → 3N 15:35
PROVIDERS: Hospitalist; Internal Medicine; Nurse Practitioner Family; Psychiatry & Neurology Psychiatry
DX: F03.90 Unspecified dementia, unspecified severity, without behavioral disturbance, psychotic disturbance, mood disturbance, and anxiety (principal); E43 Unspecified severe protein-calorie malnutrition; D61.818 Other pancytopenia; R45.851 Suicidal ideations; F25.9 Schizoaffective disorder, unspecified; G62.9 Polyneuropathy, unspecified; B19.20 Unspecified viral hepatitis C without hepatic coma; F41.9 Anxiety disorder, unspecified; E78.5 Hyperlipidemia, unspecified; G89.29 Other chronic pain; M54.9 Dorsalgia, unspecified; R74.0 Nonspecific elevation of levels of transaminase and lactic acid dehydrogenase [LDH]; F31.9 Bipolar disorder, unspecified; F17.210 Nicotine dependence, cigarettes, uncomplicated; G40.909 Epilepsy, unspecified, not intractable, without status epilepticus; K59.00 Constipation, unspecified; I73.9 Peripheral vascular disease, unspecified; M54.31 Sciatica, right side; Z90.49 Acquired absence of other specified parts of digestive tract; Z98.42 Cataract extraction status, left eye; Z88.0 Allergy status to penicillin; Z88.8 Allergy status to other drugs, medicaments and biological substances; Z88.5 Allergy status to narcotic agent; Z89.011 Acquired absence of right thumb; Z83.3 Family history of diabetes mellitus; Z71.6 Tobacco abuse counseling; Z68.25 Body mass index [BMI] 25.0-25.9, adult; Z79.82 Long term (current) use of aspirin; Z79.899 Other long term (current) drug therapy; Z87.820 Personal history of traumatic brain injury